=== PATIENT | female | born 1960 | race American Indian/Alaskan Native ===

== ENCOUNTER 2018-06-18 15:45 | Emergency (ER) | payer MEDICAID ==
--- NOTE | 2018-06-18 18:12 | Emergency Department Report ---
Blank Doc - Documentation Documentation: 57 y o male presents to ED cc of migraine headache x 2 weeks alsostates she needs her medications refilled. ran out 1 week ago hx of migraines no neuro sxs [facility] evaluate
[2018-06-18 18:14] VITALS: BP 141/84
[2018-06-18] MEDS ORDERED: BENADRYL PO ONE (20:13)
[2018-06-18] MEDS ORDERED: IBUPROFEN PO ONE (20:13)
[2018-06-18] MEDS ORDERED: REGLAN PO ONE (20:13)
--- NOTE | 2018-06-18 20:14 | Emergency Department Report ---
ED Headache HPI - General Chief Complaint: Headache Stated Complaint: HEADACHE Time Seen by Provider: 06/18/18 18:10 - History of Present Illness Timing/Duration: 24 hours Quality: moderate Head Injury Location: temporal Recent Head Trauma: chronic headaches Allergies/Adverse Reactions: Allergies No Known Allergies Allergy (Unverified 06/18/18 15:52) Home Medications: Ambulatory Orders Cephalexin [Keflex] 500 mg PO BID #20 capsule 06/18/18 Darunavir/Cobicistat [Prezcobix 800 mg-150 mg Tablet] 1 each PO QDAY #30 tablet 06/18/18 Emtricitabine/Tenofov Alafenam [Descovy 200-25 mg Tablet] 1 each PO QDAY #30 tablet 06/18/18 Folic Acid [Folvite] 1 mg PO QDAY #30 tablet 06/18/18 Ibuprofen [Motrin 600 MG tab] 600 mg PO Q8H #15 tablet 06/18/18 traZODone [Desyrel] 50 mg PO QHS #30 tab 06/18/18 ED Review of Systems ROS: Stated complaint: HEADACHE Other details as noted in HPI Comment: All other systems reviewed and negative Constitutional: denies: chills, fever Eyes: denies: eye pain, eye discharge, vision change ENT: denies: ear pain, throat pain Respiratory: no symptoms reported Cardiovascular: denies: chest pain, palpitations Endocrine: no symptoms reported Gastrointestinal: denies: abdominal pain, nausea, diarrhea Genitourinary: denies: urgency, dysuria, discharge Musculoskeletal: denies: back pain, joint swelling, arthralgia Skin: denies: rash, lesions Neurological: headache ED Past Medical Hx - Past Medical History Previous Medical History?: Yes Hx Hypertension: Yes Hx HIV: Yes - Surgical History Past Surgical History?: No - Social History Smoking Status: Never Smoker Substance Use Type: None - Medications Home Medications: Home Medications Medication Instructions Recorded Confirmed Last Taken Type Cephalexin [Keflex] 500 mg PO BID #20 capsule 06/18/18 Unknown Rx Darunavir/Cobicistat [Prezcobix 1 each PO QDAY #30 tablet 06/18/18 Unknown Rx 800 mg-150 mg Tablet] Emtricitabine/Tenofov Alafenam 1 each PO QDAY #30 tablet 06/18/18 Unknown Rx [Descovy 200-25 mg Tablet] Folic Acid [Folvite] 1 mg PO QDAY #30 tablet 06/18/18 Unknown Rx Ibuprofen [Motrin 600 MG tab] 600 mg PO Q8H #15 tablet 06/18/18 Unknown Rx traZODone [Desyrel] 50 mg PO QHS #30 tab 06/18/18 Unknown Rx ED Physical Exam - General Limitations: No Limitations General appearance: alert, in no apparent distress - Head Head exam: Present: atraumatic, normocephalic - Eye Eye exam: Present: normal appearance, PERRL, EOMI - ENT ENT exam: Present: mucous membranes moist - Neurological Exam Neurological exam: Present: alert, oriented X3 - Psychiatric Psychiatric exam: Present: normal affect, normal mood - Skin Skin exam: Present: warm, dry, intact, normal color. Absent: rash ED Course Vital Signs 06/18/18 06/18/18 18:12 20:58 Temperature 98.5 F Pulse Rate 67 70 Respiratory 16 16 Rate Blood Pressure 141/84 O2 Sat by Pulse 99 99 Oximetry Critical care attestation.: If time is entered above; I have spent that time in minutes in the direct care of this critically ill patient, excluding procedure time. ED Disposition Clinical Impression: Sinusitis, acute, HIV disease Disposition: DC-01 TO HOME OR SELFCARE Is pt being admited?: No Does the pt Need Aspirin: No Condition: Stable Instructions: Sinusitis (ED), Human Immunodeficiency Virus Infection (ED) Additional Instructions: Please take medications as prescribed. Follow-up to primary care provider if symptoms persist or gets worse. Increase your water intake and fluid intake. All of what which are infectious disease provider. Prescriptions: traZODone [Desyrel] 50 mg PO QHS #30 tab Emtricitabine/Tenofov Alafenam [Descovy 200-25 mg Tablet] 1 each PO QDAY #30 tablet Folic Acid [Folvite] 1 mg PO QDAY #30 tablet Cephalexin [Keflex] 500 mg PO BID #20 capsule Ibuprofen [Motrin 600 MG tab] 600 mg PO Q8H #15 tablet Darunavir/Cobicistat [Prezcobix 800 mg-150 mg Tablet] 1 each PO QDAY #30 tablet Referrals: [facility] MD ADRIANNE [Primary Care Provider] - 3-5 Days JASBIR HUANG MD [Staff Physician] - 3-5 Days
== END 2018-06-18 20:59 | disposition home or self-care (01) ==
LOC: ED 15:45
DX: J01.90 Acute sinusitis, unspecified (principal); I10 Essential (primary) hypertension
CPT/HCPCS: 99282

== ENCOUNTER 2018-10-22 21:42 | Emergency (ER) | payer MEDICAID ==
--- NOTE | 2018-10-22 21:51 | Emergency Department Report ---
Blank Doc - Documentation Documentation: This is a 57-year-old female that presents with detox from percocet. This initial assessment/diagnostic orders/clinical plan/treatment(s) is/are subject to change based on patient's health status, clinical progression and re- assessment by fellow clinical providers in the ED. Further treatment and workup at subsequent clinical providers discretion. Patient/guardians urged not to elope from the ED as their condition may be serious if not clinically assessed and managed. Initial orders include: 1- Patient sent to MAIN ED for further evaluation and treatment 2- labs 3- UA
[2018-10-22 22:48] LABS: Bilirubin,Urine Negative (Negative); Blood,Urine Negative (Negative); Color,Urine Yellow (Yellow); Urobilinogen,Urine < 2.0 mg/dL (<2.0)
[2018-10-22 22:49] LABS: RBC,Urine < 1.0 /HPF (0.0-6.0)
[2018-10-22 23:04] LABS: Basophils % (Auto) 0.8 % (0.0-1.8); Eosinophils # (Auto) 0.1 K/mm3 (0.0-0.4); Eosinophils % (Auto) 0.9 % (0.0-4.3); Hematocrit 45.3 % (30.3-42.9); Hemoglobin 15.3 gm/dl (10.1-14.3); Lymphocytes # (Auto) 2.9 K/mm3 (1.2-5.4); Lymphocytes % (Auto) 46.9 % (13.4-35.0); Mean Corpuscular HGB Conc 34 % (30-34); Mean Corpuscular Volume 93 fl (79-97); Monocytes # (Auto) 0.4 K/mm3 (0.0-0.8); Monocytes % (Auto) 7.1 % (0.0-7.3); Platelet Count 191 K/mm3 (140-440); Red Blood Count 4.85 M/mm3 (3.65-5.03); Red Cell Distribution Width 13.5 % (13.2-15.2)
[2018-10-22 23:11] LABS: BUN/Creatinine Ratio 23; Blood Urea Nitrogen 21 mg/dL (7-17); Calcium 9.4 mg/dL (8.4-10.2); Hemolysis Index 195
[2018-10-22 23:26] LABS: Benzodiazepines Screen,Urine PRESUMPTIVE NEGATIVE; Cocaine Screen,Urine PRESUMPTIVE NEGATIVE; Methadone Screen,Urine PRESUMPTIVE NEGATIVE; Opiate Screen,Urine PRESUMPTIVE NEGATIVE
[2018-10-22 23:42] LABS: Amphetamine Screen,Urine PRESUMPTIVE POSITIVE; Cannabinoid Screen,Urine PRESUMPTIVE POSITIVE
[2018-10-23] MEDS ORDERED: NACL 0.9% 1000 ML 1,000 ML IV ONE (00:50)
[2018-10-23] MEDS ORDERED: KIONEX PO ONE (00:51)
[2018-10-23] MEDS ORDERED: TYLENOL PO ONE (01:20)
--- NOTE | 2018-10-23 01:41 | Emergency Department Report ---
ED Medical Clearance HPI - General Chief complaint: Medical Clearance Stated complaint: DETOX Time Seen by Provider: 10/22/18 21:49 Source: patient, family Mode of arrival: Ambulatory - History of Present Illness Initial comments: 57 y.o aaf who uses alcohol and opiates daily, now requesting detox for both. Last drink alcohol yesterday, last took percocet 10mg yesterday. no n/v. no fever, chills or night sweats. Home medications: Home Medications Medication Instructions Recorded Confirmed Last Taken FLUoxetine HCL [FLUoxetine] 20 mg PO DAILY 10/23/18 10/23/18 10/22/18 Previous Rx's Medication Instructions Recorded Last Taken Type Cephalexin [Keflex] 500 mg PO BID #20 capsule 06/18/18 Unknown Rx Darunavir/Cobicistat [Prezcobix 1 each PO QDAY #30 tablet 06/18/18 10/22/18 Rx 800 mg-150 mg Tablet] Emtricitabine/Tenofov Alafenam 1 each PO QDAY #30 tablet 06/18/18 10/22/18 Rx [Descovy 200-25 mg Tablet] Folic Acid [Folvite] 1 mg PO QDAY #30 tablet 06/18/18 Unknown Rx Ibuprofen [Motrin 600 MG tab] 600 mg PO Q8H #15 tablet 06/18/18 Unknown Rx traZODone [Desyrel] 50 mg PO QHS #30 tab 06/18/18 Unknown Rx Allergies/Adverse reactions: Allergies Allergy/AdvReac Type Severity Reaction Status Date / Time No Known Allergies Allergy Unverified 06/18/18 15:52 ED Review of Systems ROS: Stated complaint: DETOX Other details as noted in HPI Comment: All other systems reviewed and negative ENT: denies: ear pain, throat pain Respiratory: denies: no symptoms reported, cough Cardiovascular: chest pain Gastrointestinal: denies: abdominal pain Neurological: denies: headache Psychiatric: anxiety. denies: depression, auditory hallucinations, visual hallucinations, homicidal thoughts, suicidal thoughts ED Past Medical Hx - Past Medical History Previous Medical History?: Yes Hx Hypertension: Yes Hx HIV: Yes Additional medical history: Opioid Addiction - Surgical History Past Surgical History?: No - Social History Smoking Status: Current Every Day Smoker Substance Use Type: Marijuana - Medications Home Medications: Home Medications Medication Instructions Recorded Confirmed Last Taken Type Cephalexin [Keflex] 500 mg PO BID #20 capsule 06/18/18 Unknown Rx Darunavir/Cobicistat [Prezcobix 1 each PO QDAY #30 tablet 06/18/18 10/23/18 10/22/18 Rx 800 mg-150 mg Tablet] Emtricitabine/Tenofov Alafenam 1 each PO QDAY #30 tablet 06/18/18 10/23/18 10/22/18 Rx [Descovy 200-25 mg Tablet] Folic Acid [Folvite] 1 mg PO QDAY #30 tablet 06/18/18 Unknown Rx Ibuprofen [Motrin 600 MG tab] 600 mg PO Q8H #15 tablet 06/18/18 Unknown Rx traZODone [Desyrel] 50 mg PO QHS #30 tab 06/18/18 Unknown Rx FLUoxetine HCL [FLUoxetine] 20 mg PO DAILY 10/23/18 10/23/18 10/22/18 History ED Physical Exam - General Limitations: No Limitations General appearance: alert, in no apparent distress - Head Head exam: Present: atraumatic, normocephalic - Eye Eye exam: Present: normal appearance, PERRL, EOMI Pupils: Present: normal accommodation - ENT ENT exam: Present: normal exam - Neck Neck exam: Present: normal inspection - Respiratory Respiratory exam: Present: normal lung sounds bilaterally - Cardiovascular Cardiovascular Exam: Present: regular rate, normal rhythm - GI/Abdominal GI/Abdominal exam: Present: soft, normal bowel sounds - Neurological Exam Neurological exam: Present: alert, oriented X3, CN II-XII intact - Skin Skin exam: Present: warm ED Course Vital Signs 10/22/18 10/23/18 10/23/18 21:50 00:29 00:30 Temperature 98.4 F Pulse Rate 82 76 70 Respiratory 16 22 20 Rate Blood Pressure 113/77 126/84 113/80 Blood Pressure [Left] O2 Sat by Pulse 98 99 Oximetry 10/23/18 10/23/18 10/23/18 00:45 01:00 01:15 Temperature Pulse Rate 69 67 66 Respiratory 21 21 16 Rate Blood Pressure 113/80 117/78 117/78 Blood Pressure [Left] O2 Sat by Pulse 99 100 98 Oximetry 10/23/18 10/23/18 10/23/18 01:30 01:45 02:01 Temperature Pulse Rate 66 61 61 Respiratory 15 21 20 Rate Blood Pressure 132/84 132/84 132/84 Blood Pressure [Left] O2 Sat by Pulse 97 100 100 Oximetry 10/23/18 10/23/18 10/23/18 02:15 02:31 02:45 Temperature Pulse Rate 70 75 76 Respiratory 19 23 14 Rate Blood Pressure 132/84 132/84 132/84 Blood Pressure [Left] O2 Sat by Pulse 100 98 100 Oximetry 10/23/18 10/23/18 10/23/18 03:01 03:15 03:31 Temperature Pulse Rate Respiratory 26 H 29 H 18 Rate Blood Pressure 132/84 132/84 132/84 Blood Pressure [Left] O2 Sat by Pulse 99 98 97 Oximetry 10/23/18 10/23/18 10/23/18 03:45 04:01 04:15 Temperature Pulse Rate Respiratory 23 24 23 Rate Blood Pressure 132/84 132/84 132/84 Blood Pressure [Left] O2 Sat by Pulse 98 99 98 Oximetry 10/23/18 10/23/18 10/23/18 04:31 04:45 05:01 Temperature Pulse Rate Respiratory 25 H 19 23 Rate Blood Pressure 132/84 132/84 132/84 Blood Pressure [Left] O2 Sat by Pulse 99 98 99 Oximetry 10/23/18 10/23/18 10/23/18 05:15 05:31 05:45 Temperature Pulse Rate Respiratory 22 27 H 14 Rate Blood Pressure 132/84 132/84 132/84 Blood Pressure [Left] O2 Sat by Pulse 98 98 98 Oximetry 10/23/18 10/23/18 10/23/18 06:01 06:16 06:34 Temperature Pulse Rate Respiratory 24 Rate Blood Pressure 132/84 118/89 118/89 Blood Pressure [Left] O2 Sat by Pulse 95 89 81 L Oximetry 10/23/18 10/23/18 10/23/18 06:38 07:46 11:40 Temperature 98.1 F 98.1 F Pulse Rate 84 76 Respiratory 16 Rate Blood Pressure Blood Pressure 124/85 115/84 [Left] O2 Sat by Pulse 95 98 99 Oximetry 10/23/18 10/24/18 10/24/18 19:20 02:33 08:40 Temperature 98.3 F 97.8 F 98.0 F Pulse Rate 68 61 70 Respiratory 18 18 16 Rate Blood Pressure Blood Pressure 146/100 130/85 141/93 [Left] O2 Sat by Pulse 98 100 99 Oximetry 10/24/18 14:04 Temperature Pulse Rate 63 Respiratory 16 Rate Blood Pressure Blood Pressure 157/87 [Left] O2 Sat by Pulse 100 Oximetry ED Medical Decision Making - Lab Data Result diagrams: 10/22/18 22:26 10/23/18 11:49 - Medical Decision Making medically clear for placement. ED Disposition Clinical Impression: Alcohol abuse, Opiate abuse, continuous Disposition: DC/TX-70 ANOTHER TYPE HLTHCARE Is pt being admited?: No Does the pt Need Aspirin: No Condition: Stable Referrals: MINDY LIRA MD [Primary Care Provider] - 3-5 Days Forms: Accompanied Note
[2018-10-23] MEDS: ATIVAN PO PRN ×2 (02:45→09:29)
[2018-10-23] MEDS ORDERED: ZOFRAN IV PRN (10:02)
[2018-10-23] MEDS: TYLENOL PO PRN ×2 (11:30→21:46)
--- NOTE | 2018-10-23 14:09 | Consultation ---
History of Present Illness - Reason for Consult Consult date: 10/23/18 Reason for consult: Mental Health Evaluation Requesting physician: MIRI PEDROZA - Chief Complaint Chief complaint: "I want to stop with the pills" - History of Present Psychiatric Illness 57 y.o. AA female who presented to the ER for detox for opioids and alcohol (etoh). Today the patient was calm during the assessment. She stated that she is feeling hopeless and helpless because of her opioid and alcohol addiction. She stated that she started taking Percocet pills 6 months ago to relieve her migraine headaches. She stated that she buy the pills on the street. She stated that her alcohol consumption (etoh) has increased over the past few months. She stated that she have drink everyday recently. She rate her depression 6/10, with 10 being the worse. She denies SI/HI's and AVH's. She acknowledged poor sleep and a poor appetite. She stated that she had a Percocet pill and drink [id number] (etoh) 2 days ago. The patient's UDS is negative and her alcohol serum is WNL. Medications and Allergies Allergies Allergy/AdvReac Type Severity Reaction Status Date / Time No Known Allergies Allergy Unverified 06/18/18 15:52 Home Medications Medication Instructions Recorded Confirmed Last Taken Type Cephalexin [Keflex] 500 mg PO BID #20 capsule 06/18/18 Unknown Rx Darunavir/Cobicistat [Prezcobix 1 each PO QDAY #30 tablet 06/18/18 10/23/18 10/22/18 Rx 800 mg-150 mg Tablet] Emtricitabine/Tenofov Alafenam 1 each PO QDAY #30 tablet 06/18/18 10/23/18 10/22/18 Rx [Descovy 200-25 mg Tablet] Folic Acid [Folvite] 1 mg PO QDAY #30 tablet 06/18/18 Unknown Rx Ibuprofen [Motrin 600 MG tab] 600 mg PO Q8H #15 tablet 06/18/18 Unknown Rx traZODone [Desyrel] 50 mg PO QHS #30 tab 06/18/18 Unknown Rx FLUoxetine HCL [FLUoxetine] 20 mg PO DAILY 10/23/18 10/23/18 10/22/18 History Active Meds: Active Medications Acetaminophen (Tylenol) 650 mg PO Q6H PRN PRN Reason: Headache Last Admin: 10/23/18 11:30 Dose: 650 mg Documented by: Lorazepam (Ativan) 2 mg PO Q1H PRN PRN Reason: CIWA-Ar 8-15 Last Admin: 10/23/18 09:29 Dose: 2 mg Documented by: Ondansetron HCl (Zofran) 4 mg IV Q8H PRN PRN Reason: Nausea Last Admin: 10/23/18 09:29 Dose: 4 mg Documented by: Past psychiatric history - Past Medical History Past Medical History: HIV/AIDS, other (Migraine Headaches) Past Surgical History: No surgical history - past Psychiatric treatment and history psychiatric treatment history: Hx of Opioid Use DO. Denies a fam psy hx. - Social History Social history: lives with family Mental Status Exam - Vital signs Last Vital Signs Temp 98.1 F 10/23/18 11:40 Pulse 76 10/23/18 07:46 Resp 16 10/23/18 07:46 BP 115/84 10/23/18 11:40 Pulse Ox 99 10/23/18 11:40 - Exam Narrative exam: MSE: Appearance: calm Behavior: regular eye contact Speech: regular rate and tone Mood: "depressed" Affect: congruent to mood Thought Process: circumstantial Thought Content: denies SI/HI's and AVH's Motor Activity: ambulatory Cognition: A/O x3 Insight: fair Judgment: fair Results Result Diagrams: 10/22/18 22:26 10/23/18 11:49 Abnormal lab results 10/22/18 10/22/18 10/23/18 Range/Units 22:26 22:26 01:51 Hgb 15.3 H (10.1-14.3) gm/dl Hct 45.3 H (30.3-42.9) % Lymph % (Auto) 46.9 H (13.4-35.0) % Sodium 136 L (137-145) mmol/L Potassium 5.9 H 5.1 H (3.6-5.0) mmol/L BUN 21 H (7-17) mg/dL All other labs normal. Assessment and Plan Assessment and plan: Impression: MDD. Hx of Opioid/Alcohol Use DO per the patient. Substance Use DO (amphetamines/barbiturates). 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 Today the patient was calm during the assessment, DDx: Substance Induced Mood DO Recommendation/Plan: Start Remeron 15 mg PO HS for depression. Discussed possible metabolic suicidality/medication induced miguelangel with the patient reference Remeron, she verbalized understanding. Monitor the patient for withdrawal like symptoms. Dispo: The patient was referred to [facility] for inpatient rehab services (voluntary). Staffed with Dr Kilo Brewer.
[2018-10-23] MEDS: REMERON PO SCH (21:46)
[2018-10-24] MEDS: ATIVAN PO PRN (10:51)
[2018-10-24] MEDS: TYLENOL PO PRN (20:49)
[2018-10-24] MEDS: REMERON PO SCH (21:42)
--- NOTE | 2018-10-25 08:25 | Progress Note ---
Subjective - Reason for Consult Consult date: 10/25/18 Reason for consult: Psychiatry Follow-up - Chief Complaint Chief complaint: "I feel much better" 57 y.o. AA female who presented to the ER for detox for opiates and alcohol (etoh). Today the patient was calm and cooperative during the assessment. She stated that she feel much better. She stated that she got rest the past 2 nights. She was explained the referral process for inpatient psy/rehab faci lities, she verbalized understanding. She denies SI/HI's and AVHs. She denies any side effects of her medication. Mental Status Exam - Vital signs Last Vital Signs Temp 98.2 F 10/25/18 04:00 Pulse 72 10/25/18 04:00 Resp 16 10/25/18 04:00 BP 132/65 10/25/18 04:00 Pulse Ox 98 10/25/18 04:00 - Exam Narrative exam: MSE: Appearance: calm, cooperative Behavior: regular eye contact Speech: regular rate and tone Mood: "better" Affect: congruent to mood Thought Process: logical Thought Content: denies SI/HI's and AVH's Motor Activity: ambulatory Cognition: A/O x3 Insight: appropriate Judgment: appropriate Assessment and Plan Impression: MDD. Hx of Opioid/Alcohol Use DO per the patient. Substance Use DO (amphetamines/barbiturates). 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 Today the patient was calm and cooperative during the assessment, DDx: Substance Induced Mood DO Recommendation/Plan: Continue Remeron 15 mg PO HS for depression. Discussed possible metabolic suicidality/medication induced miguelangel with the patient reference Remeron, she verbalized understanding. Monitor the patient for withdrawal like symptoms. Discussed the importance to abstain from opiates/ excessive alcohol consumption (etoh), she verbalized understanding. Psy sign off. Dispo: The patient was given a referral to local outpatient psy/rehab services. Will staff with DR Kilo Brewer.
[2018-10-25] MEDS: TYLENOL PO PRN (08:34)
[2018-10-25 09:44] VITALS: BP 133/89
== END 2018-10-25 09:58 | disposition home or self-care (01) ==
LOC: ED 10-23 00:26
DX: F41.9 Anxiety disorder, unspecified (principal); F11.23 Opioid dependence with withdrawal; F10.239 Alcohol dependence with withdrawal, unspecified; I10 Essential (primary) hypertension; F17.200 Nicotine dependence, unspecified, uncomplicated; F12.10 Cannabis abuse, uncomplicated
CPT/HCPCS: 36415; 80048; 80307; 81001; 84132; 85025; 93005; 93010; 96374; 99284; J2405; J7030; 80320; 96361; 99285; G0480

== ENCOUNTER 2019-02-05 17:40 | Emergency (ER) | payer MEDICAID ==
[2019-02-05 17:55] VITALS: BP 102/77
--- NOTE | 2019-02-05 17:56 | Event Note ---
ED Screening Note Date of service: 02/05/19 ED Screening Note: This initial assessment/diagnostic orders/clinical plan/treatment(s) is/are subject to change based on patients health status, clinical progression and re- assessment by fellow clinical providers in the ED. Further treatment and workup at subsequent clinical providers discretion. Patient/guardian urged not to elope from the ED as their condition may be serious if not clinically assessed and managed. Initial orders include: 58yo BF states that she slipped and fell at home. She states that her lower back and head hurts. She further states that she hit her head at the base. She denies losing consciousness.
--- NOTE | 2019-02-05 18:41 | XRay Report ---
XR spine lumbosacral 2-3V INDICATION / CLINICAL INFORMATION: Low back pain after fall. COMPARISON: None available. FINDINGS: BONES/JOINT(S): No acute fracture or subluxation. There is mild degenerative disc disease at L4-5 and L5-S1 with mild disc height loss and endplate osteophyte formation. There is slight left convex scol iosis with the apex at the L2-L3 level. SOFT TISSUES: No significant abnormality. ADDITIONAL FINDINGS: None. Signer Name: Jarrod Patrick MD Signed: 02/05/2019 6:37 PM Workstation Name: [id number]
--- NOTE | 2019-02-05 19:55 | Emergency Department Report ---
ED Fall HPI - General Chief Complaint: Fall Stated Complaint: FALL Time Seen by Provider: 02/05/19 19:53 Source: patient, family Mode of arrival: Ambulatory - History of Present Illness Initial Comments: This is a 58-year-old female who reports that she slipped and fell on wet floor in her kitchen today and she is having lower back pain and neck pain and reported that she also hit the back of her head and she is having headache at the back of her head. Pain to her lower back and had is 8 out of 10 and achy. Patient to neck 6 out of 10. She denies any dizziness him any vomiting any loss of consciousness. Denies any fever or chills or neck pain or stiffness. Denies any pain in her extremities. Patient seemed to be walking around. She said this happened earlier today. She also reported that she has a lump at the back of her head. She denies taking any medication prior to coming to the emergency room. Patient has a history of HIV and on medication and she says she follows up with infectious disease and history of opioid addiction. MD Complaint: fall -: This afternoon Fall From: standing When Fall Occurred: 4-6 hours [employer] Fall Witnessed: yes, by family Place Fall Occurred: home Loss of Consciousness: none Prolonged Down Time?: no Symptoms Prior to Fall: none Location: head, neck, back Severity: severe Severity scale (0 -10): 8 Quality: aching Context: tripped/slipped (on wet floor) Associated Symptoms: headache, neck pain. denies: numbness, weakness, chest paint, shortness of breath, abdominal pain, hematuria, unable to walk, lightheaded, vertigo, confusion - Related Data Home Medications Medication Instructions Recorded Confirmed Last Taken FLUoxetine HCL [FLUoxetine] 20 mg PO DAILY 10/23/18 10/23/18 10/22/18 Previous Rx's Medication Instructions Recorded Last Taken Type Cephalexin [Keflex] 500 mg PO BID #20 capsule 06/18/18 Unknown Rx Darunavir/Cobicistat [Prezcobix 1 each PO QDAY #30 tablet 06/18/18 10/22/18 Rx 800 mg-150 mg Tablet] Emtricitabine/Tenofov Alafenam 1 each PO QDAY #30 tablet 06/18/18 10/22/18 Rx [Descovy 200-25 mg Tablet] Folic Acid [Folvite] 1 mg PO QDAY #30 tablet 06/18/18 Unknown Rx traZODone [Desyrel] 50 mg PO QHS #30 tab 06/18/18 Unknown Rx Ibuprofen [Motrin 600 MG tab] 600 mg PO Q8H PRN #12 tablet 02/05/19 Unknown Rx Allergies Allergy/AdvReac Type Severity Reaction Status Date / Time No Known Allergies Allergy Unverified 06/18/18 15:52 ED Review of Systems ROS: Stated complaint: FALL Other details as noted in HPI Constitutional: denies: chills, fever Eyes: denies: vision change Respiratory: denies: cough, shortness of breath, SOB with exertion, SOB at rest, wheezing Cardiovascular: denies: chest pain, palpitations, dyspnea on exertion, edema, syncope Gastrointestinal: denies: abdominal pain, nausea, vomiting Genitourinary: denies: dysuria, hematuria Skin: denies: rash Neurological: headache. denies: weakness, numbness, paresthesias, confusion, abnormal gait, vertigo ED Past Medical Hx - Past Medical History Previous Medical History?: Yes Hx Hypertension: Yes Hx HIV: Yes Additional medical history: Opioid Addiction - Surgical History Past Surgical History?: No - Family History Family history: hypertension - Social History Smoking Status: Current Every Day Smoker Substance Use Type: None - Medications Home Medications: Home Medications Medication Instructions Recorded Confirmed Last Taken Type Cephalexin [Keflex] 500 mg PO BID #20 capsule 06/18/18 Unknown Rx Darunavir/Cobicistat [Prezcobix 1 each PO QDAY #30 tablet 06/18/18 10/23/18 10/22/18 Rx 800 mg-150 mg Tablet] Emtricitabine/Tenofov Alafenam 1 each PO QDAY #30 tablet 06/18/18 10/23/18 10/22/18 Rx [Descovy 200-25 mg Tablet] Folic Acid [Folvite] 1 mg PO QDAY #30 tablet 06/18/18 Unknown Rx traZODone [Desyrel] 50 mg PO QHS #30 tab 06/18/18 Unknown Rx FLUoxetine HCL [FLUoxetine] 20 mg PO DAILY 10/23/18 10/23/18 10/22/18 History Ibuprofen [Motrin 600 MG tab] 600 mg PO Q8H PRN #12 tablet 11/29/19 Unknown Rx ED Physical Exam - General Limitations: No Limitations General appearance: alert, in no apparent distress - Head Head exam: Present: atraumatic, normocephalic - Expanded Head Exam Expanded Head exam: Absent: laceration, abrasion, contusion, hematoma, racoon eyes, herndon's sign, general tenderness, tenderness of temporal artery, CSF rhinorrhea, CSF otorrhea - Eye Eye exam: Present: normal appearance, PERRL, EOMI. Absent: nystagmus, periorbital swelling, periorbital tenderness Pupils: Present: normal accommodation - ENT ENT exam: Present: normal exam, normal orophraynx, mucous membranes moist, TM's normal bilaterally, normal external ear exam - Neck Neck exam: Present: normal inspection, full ROM (full range of motion but she reports pain to the side of her neck with movement), other (no C-spine tenderness). Absent: tenderness, meningismus, lymphadenopathy - Respiratory Respiratory exam: Present: normal lung sounds bilaterally. Absent: respiratory distress, chest wall tenderness - Cardiovascular Cardiovascular Exam: Present: regular rate, normal rhythm, normal heart sounds - GI/Abdominal GI/Abdominal exam: Present: soft, normal bowel sounds. Absent: distended, tenderness - Extremities Exam Extremities exam: Present: normal inspection, full ROM, normal capillary refill, other (No cce. + 2 pulses in all extremities, no neurovascular compromise). Absent: tenderness, pedal edema, joint swelling, calf tenderness - Back Exam Back exam: Present: normal inspection, full ROM, tenderness, vertebral tenderness (tender to palpate to lumbar area), other (ambulates without any difficulties). Absent: CVA tenderness (R), CVA tenderness (L), muscle spasm, paraspinal tenderness, rash noted - Expanded Back Exam Expanded Back exam: Absent: saddle anesthesia Back exam: Negative Straight Leg Raising: Left, Right - Neurological Exam Neurological exam: Present: alert, oriented X3, normal gait, reflexes normal. Absent: motor sensory deficit - Expanded Neurological Exam Expanded Neurological exam: Absent: innattentive, memory loss-remote event, memory loss- recent event, ataxia, receptive aphasia, expressive aphasia, total aphasia, tremor, protecting the airway Patient oriented to: Present: person, place, time Speech: Present: fluid speech Cranial nerves: EOM's Intact: Normal, Gag Reflex: Normal, Nystagmus: Normal, F acial Sensation: Normal Cerebellar function: Romberg: Normal Upper motor neuron: Pronator Drift: Normal Sensory exam: Upper Extremity Light Touch: Normal, Upper Extremity Temperature: Normal, Lower Extremity Light Touch: Normal, Lower Extremity Temperature: Normal Motor strength exam: RUE: 5, LUE: 5, RLE: 5, LLE: 5 DTR: knee (R): 2+, knee (L): 2+, ankle (R): 2+, ankle (L): 2+ Best Eye Response (Rj): (4) open spontaneously Best Motor Response (Rj): (6) obeys commands Best Verbal Response ([place]): (5) oriented Rj Total: 15 - Psychiatric Psychiatric exam: Present: normal affect, normal mood - Skin Skin exam: Present: warm, dry, intact, normal color. Absent: rash ED Course Vital Signs 02/05/19 02/05/19 17:52 20:23 Temperature 98.5 F Pulse Rate 78 Respiratory 20 18 Rate Blood Pressure 102/77 O2 Sat by Pulse 100 Oximetry - Reevaluation(s) Reevaluation #1: 02/05/19 22:28 She received Tylenol with Codeine 2 tablets and Flexeril 10 mg by mouth and pain is better down to 2 out of 10. I discussed with her that I cannot give her any pain medication to go home with depressed second duties to give her motrin for pain and she voiced understanding. 02/05/19 22:36 ED Medical Decision Making - Radiology Data Radiology results: report reviewed Patient had x-ray lumbar spine which shows no acute findings, CT scan of the head and the neck without contrast and all were dictated by radiologist and report reviewed by myself. Please see details below Findings [address] [address] XRay Report Signed Patient: BRENDA MILLS MR#: [id number] : 1960 Acct:[id number] Age/Sex: 58 / F ADM Date: 02/05/19 Loc: ED Attending Dr: Ordering Physician: JAXON ELIZABETH PA-C Date of Service: 02/05/19 Procedure(s): XR spine lumbosacral 2-3V Accession Number(s): [id number] cc: JAXON ELIZABETH PA-C Fluoro Time In Minutes: XR spine lumbosacral 2-3V INDICATION / CLINICAL INFORMATION: Low back pain after fall. COMPARISON: None available. FINDINGS: BONES/JOINT(S): No acute fracture or subluxation. There is mild degenerative disc disease at L4-5 and L5-S1 with mild disc height loss and endplate osteophyte formation. There is slight left convex scoliosis with the apex at the L2-L3 level. SOFT TISSUES: No significant abnormality. ADDITIONAL FINDINGS: None. Signer Name: Jarrod Patrick MD Signed: 02/05/2019 6:37 PM Workstation Name: [id number] Transcribed By: TIESHA Dictated By: Jarrod Patrick MD Electronically Authenticated By: Jarrod Patrick MD Signed Date/Time: 02/05/191836 DD/ 35 TD/TT: Findings [facility] [address] [place] [address] Cat Scan Report Signed Patient: BRENDA MILLS MR#: [id number] : 1960 Acct:[id number] Age/Sex: 58 / F ADM Date: 02/05/19 Loc: ED Attending Dr: Ordering Physician: SHELBI TYSON Date of Service: 02/05/19 Procedure(s): CT head/brain wo con Accession Number(s): [id number] cc: SHELBI TYSON CT head/brain wo con INDICATION: Fall, head injury. TECHNIQUE: Routine CT head without contrast. All CT scans at this location are performed using CT dose reduction for ALARA by means of automated exposure control. COMPARISON: None. FINDINGS: BRAIN / INTRACRANIAL CONTENTS: There is no acute hemorrhage, brain edema, hydrocephalus, or adverse mass effect. There is an extra-axial CSF attenuation fluid collection over the left frontal convexity most likely representing an arachnoid cyst. CALVARIUM/SKULL BASE/CRANIOCERVICAL JUNCTION: No evidence of fracture. ORBITS: No significant abnormality of visualized orbits. SINUSES / MASTOIDS: No significant abnormality of visualized sinuses and mastoid air cells. ADDITIONAL FINDINGS: None. IMPRESSION: 1. No acute intracranial abnormality. 2. Extra-axial cystic lesion of the left frontal convexity probably represents a small arachnoid cyst. Signer Name: Jarrod Patrick MD Signed: 02/05/2019 9:20 PM Workstation Name: [id number] Transcribed By: TIESHA Dictated By: Jarrod Patrick MD Electronically Authenticated By: Jarrod Patrick MD Signed Date/Time: 02/05/192119 DD/ 16 TD/TT: Findings [facility] [address] [place] [address] Cat Scan Report Signed Patient: BRENDA MILLS MR#: [id number] : 1960 Acct:[id number] Age/Sex: 58 / F ADM Date: 02/05/19 Loc: ED Attending Dr: Ordering Physician: SHELBI TYSON Date of Service: 02/05/19 Procedure(s): CT cervical spine wo con Accession Number(s): [id number] cc: SHELBI TYSON CT CERVICAL SPINE WITHOUT CONTRAST INDICATION: neck pain after falling dizziness. TECHNIQUE: Axial CT images of the spine were obtained. Sagittal and coronal reformatted images were produced. All CT scans at this location are performed using CT dose reduction for ALARA by means of automated exposure control. COMPARISON: None available. FINDINGS: ACUTE FRACTURE(S) OR SUBLUXATION: None. SPINAL DEGENERATIVE CHANGES: Mild degenerative disc disease from C4 through C7 with mild disc height loss and endplate osteophyte permission. No significant spinal canal stenosis. PARASPINAL SOFT TISSUES: No soft tissue swelling or other acute abnormalities. ADDITIONAL FINDINGS: There is an incidental subcutaneous lipoma in the left upper back that is incompletely visualized. IMPRESSION: 1. No acute fracture or subluxation in the spine in neutral position. 2. Mild degenerative disc disease from C4 through C7. 3. Incompletely visualized incidental subcutaneous lipoma in the left upper back. Signer Name: Jarrod Patrick MD Signed: 02/05/2019 9:23 PM Workstation Name: [id number] Transcribed By: TIESHA Dictated By: Jarrod Patrick MD Electronically Authenticated By: Jarrod Patrick MD Signed Date/Time: 02/05/192122 - Medical Decision Making This is a 58-year-old patient with history of HIV and chronic pain. She is here because she reports that she slipped and fell in her kitchen today. She is complaining of headache, neck pain and lower back pain. Patient and records report that she is chronic narcotic seeker. She had x-ray of lumbar spine which shows degenerative disc disease, degenerative disc disease in her C-spine and incidental finding on for lipoma to upper back and also CT of the head shows no acute findings except for frontal lobe cyst which is not acute. I discussed this with patient and and I referred her to neurology and also back to her primary care physician to follow up in 2-3 days and she voiced understanding. Patient was given Tylenol 3 2 tablets and Flexeril 10 mg emergency room which relieved her pain. Vital signs are stable she is afebrile. Patient has been pacing back and forth in emergency room axis and for something to eat which she did received. She stable and in no acute distress and given prescription for motrin - Differential Diagnosis FX VS SUbluxation, DDD, ICH VS ECH,MSK PAIN Critical care attestation.: If time is entered above; I have spent that time in minutes in the direct care of this critically ill patient, excluding procedure time. ED Disposition Clinical Impression: Musculoskeletal pain, Cyst of brain Fall, accidental Qualifiers: Encounter type: initial encounter Qualified Code(s): W19.XXXA - Unspecified fall, initial encounter Headache Qualifiers: Headache type: post-traumatic Headache chronicity pattern: acute headache Intractability: not intractable Qualified Code(s): G44.319 - Acute post- traumatic headache, not intractable Disposition: DC-01 TO HOME OR SELFCARE Is pt being admited?: No Does the pt Need Aspirin: No Condition: Stable Instructions: Acute Headache (ED), Fall Prevention for Older Adults (ED), Mu sculoskeletal Pain (ED), Degenerative Disc Disease (ED) Additional Instructions: Follow up with Primary care physician and Neurologist as instructed If your condition worsens, return to hospital Take motrin as prescribed, and take this medication with food as it can cause nausea and irritation to stomach lining Increase your fluid intake. Prescriptions: Ibuprofen [Motrin 600 MG tab] 600 mg PO Q8H PRN #12 tablet PRN Reason: Pain Referrals: TWIN SCHROEDER MD [Staff Physician] - 2-3 Days [facility] [Outside] - 2-3 Days Forms: Work/School Release Form(ED)
[2019-02-05] MEDS ORDERED: ACETAMINOPHEN W/CODEINE 300-30 MG TAB PO ONE (20:04)
[2019-02-05] MEDS ORDERED: CYCLOBENZAPRINE 10 MG TAB PO ONE (20:04)
--- NOTE | 2019-02-05 21:24 | Cat Scan Report ---
CT head/brain wo con INDICATION: Fall, head injury. TECHNIQUE: Routine CT head without contrast. All CT scans at this location are performed using CT dose reduction for ALARA by means of automated exposure control. COMPARISON: None. FINDINGS: BRAIN / INTRACRANIAL CONTENTS: There is no acute hemorrhage, brain edema, hydrocephalus, or adverse m ass effect. There is an extra-axial CSF attenuation fluid collection over the left frontal convexity most likely representing an arachnoid cyst. CALVARIUM/SKULL BASE/CRANIOCERVICAL JUNCTION: No evidence of fracture. ORBITS: No significant abnormality of visualized orbits. SINUSES / MASTOIDS: No significant abnormality of visualized sinuses and mastoid air cells. ADDITIONAL FINDINGS: None. IMPRESSION: 1. No acute intracranial abnormality. 2. Extra-axial cystic lesion of the left frontal convexity probably represents a small arachnoid cyst . Signer Name: Jarrod Patrick MD Signed: 02/05/2019 9:20 PM Workstation Name: [email or web address]
--- NOTE | 2019-02-05 21:27 | Cat Scan Report ---
CT CERVICAL SPINE WITHOUT CONTRAST INDICATION: neck pain after falling dizziness. TECHNIQUE: Axial CT images of the spine were obtained. Sagittal and coronal reformatted images were produced. Al l CT scans at this location are performed using CT dose reduction for ALARA by means of automated exp osure control. COMPARISON: None available. FINDINGS: ACUTE FRACTURE(S) OR SUBLUXATION: None. SPINAL DEGENERATIVE CHANGES: Mild degenerative disc disease from C4 through C7 with mild disc height loss and endplate osteophyte permission. No significant spinal canal stenosis. PARASPINAL SOFT TISSUES: No soft tissue swelling or other acute abnormalities. ADDITIONAL FINDINGS: There is an incidental subcutaneous lipoma in the left upper back that is incomp letely visualized. IMPRESSION: 1. No acute fracture or subluxation in the spine in neutral position. 2. Mild degenerative disc disease from C4 through C7. 3. Incompletely visualized incidental subcutaneous lipoma in the left upper back. Signer Name: Jarrod Patrick MD Signed: 02/05/2019 9:23 PM Workstation Name: [id number]
== END 2019-02-05 22:50 | disposition home or self-care (01) ==
LOC: ED 17:40
DX: G93.0 Cerebral cysts (principal); R51 Headache; I10 Essential (primary) hypertension; F17.200 Nicotine dependence, unspecified, uncomplicated; M79.18 Myalgia, other site; W17.89XA Other fall from one level to another, initial encounter; Y93.89 Activity, other specified; Y92.89 Other specified places as the place of occurrence of the external cause; Y99.8 Other external cause status
CPT/HCPCS: 70450; 72100; 72125

== ENCOUNTER 2019-02-11 09:15 | Emergency (ER) | payer MEDICAID ==
[2019-02-11] MEDS ORDERED: KETOROLAC 30 MG/1 ML INJ IV ONE (10:16)
[2019-02-11] MEDS ORDERED: SODIUM CHLORIDE 0.9% 1000 ML 1,000 ML IV ONE (10:16)
[2019-02-11] MEDS ORDERED: METOCLOPRAMIDE 10 MG/2 ML INJ IV ONE (10:16)
[2019-02-11] MEDS ORDERED: diphenhydrAMINE 50 MG/ML VIAL IV ONE (10:16)
--- NOTE | 2019-02-11 10:23 | Emergency Department Report ---
ED Headache HPI - General Chief Complaint: Headache Stated Complaint: HEADACHE Time Seen by Provider: 02/11/19 09:53 - History of Present Illness Initial Comments: Patient is a 58-year-old female presents emergency room with complaints of a frontal headache that began last night. She describes the pain as a pressure. She states she has had associated nausea and 3 episodes of vomiting. She denies any fever, vision changes, numbness, weakness, any other symptoms. Patient was evaluated in the emergency department on 02/[address] head at that time which showed an arachnoid cyst. She has not followed up with her primary care doctor or neurologist. Patient has a past medical history of ovarian cysts and HIV. She states that she is on her antivirals and states that her HIV is undetectable but does not know her CD4 count. She denies any allergies medications. Allergies/Adverse Reactions: Allergies No Known Allergies Allergy (Unverified 06/18/18 15:52) Home Medications: Ambulatory Orders Darunavir/Cobicistat (Nf) [Prezcobix 800 mg-150 mg (Nf)] 1 tab PO DAILY 02/11/19 Emtricitabine/Tenofov Alafenam [Descovy 200-25 mg (Nf)] 1 tab PO QDAY 02/11/19 FLUoxetine [PROzac] 20 mg PO QDAY 02/11/19 SUMAtriptan succinate [SUMAtriptan Succinate] 50 mg PO Q6HR PRN 02/11/19 traZODone [Desyrel] 50 mg PO QHS 02/11/19 ED Review of Systems ROS: Stated complaint: HEADACHE Other details as noted in HPI Comment: All other systems reviewed and negative ED Past Medical Hx - Past Medical History Previous Medical History?: Yes Hx Hypertension: Yes Hx HIV: Yes Additional medical history: Opioid Addiction - Surgical History Past Surgical History?: Yes Additional Surgical History: Ovarian cyst - Social History Smoking Status: Current Every Day Smoker Substance Use Type: None - Medications Home Medications: Home Medications Medication Instructions Recorded Confirmed Last Taken Type Darunavir/Cobicistat (Nf) 1 tab PO DAILY 02/11/19 02/11/19 Unknown History [Prezcobix 800 mg-150 mg (Nf)] Emtricitabine/Tenofov Alafenam 1 tab PO QDAY 02/11/19 02/11/19 Unknown History [Descovy 200-25 mg (Nf)] FLUoxetine [PROzac] 20 mg PO QDAY 02/11/19 02/11/19 02/11/19 08:00 History SUMAtriptan succinate [SUMAtriptan 50 mg PO Q6HR PRN 02/11/19 02/11/19 Unknown History Succinate] traZODone [Desyrel] 50 mg PO QHS 02/11/19 02/11/19 Unknown History ED Physical Exam - General Limitations: No Limitations General appearance: alert, in no apparent distress - Head Head exam: Present: atraumatic, normocephalic - Eye Eye exam: Present: normal appearance, PERRL, EOMI. Absent: scleral icterus, conjunctival injection, nystagmus - ENT ENT exam: Present: mucous membranes moist - Neck Neck exam: Present: full ROM. Absent: meningismus - Respiratory Respiratory exam: Present: normal lung sounds bilaterally. Absent: respiratory distress, wheezes, rales, rhonchi, stridor, chest wall tenderness, accessory muscle use, decreased breath sounds, prolonged expiratory - Cardiovascular Cardiovascular Exam: Present: regular rate, normal rhythm, normal heart sounds. Absent: systolic murmur, diastolic murmur, rubs, gallop - Neurological Exam Neurological exam: Present: alert, oriented X3, CN II-XII intact, normal gait, other (normal finger to nose, normal heel to brooke, 5/5 strength in the BUE/BLE, sensation intact throughout, no focal neuro deficits). Absent: motor sensory deficit - Psychiatric Psychiatric exam: Present: normal affect, normal mood - Skin Skin exam: Present: warm, dry, intact ED Course Vital Signs 02/11/19 02/11/19 09:25 15:44 Temperature 98.2 F 98.9 F Pulse Rate 89 96 H Respiratory 18 18 Rate Blood Pressure 125/82 Blood Pressure 134/94 [Left] O2 Sat by Pulse 96 100 Oximetry - Reevaluation(s) Reevaluation #1: 02/11/19 10:47 Patient expressed to nursing staff that she had suicidal ideations I went to reassess patient and she is tearful patient states that she has suicidal ideations and has a plan to overdose on pills, she states that she cannot "live with HAs every day" She denies any HI or hallucinations Denies any previous suicidal attempts States that she was in a psychiatric facility 10 years ago in [place] for depression mental health clearance labs placed ED hold orders placed stat mental health consult placed Reevaluation #2: 02/11/19 11:53 pt states she is feeling anxious, is requesting something for her anxiety ED Medical Decision Making - Lab Data Result diagrams: 02/11/19 11:05 02/11/19 11:05 Lab Results 02/11/19 02/11/19 02/11/19 Range/Units 11:05 11:05 11:05 WBC 5.6 (4.5-11.0) K/mm3 RBC 5.40 H (3.65-5.03) M/mm3 Hgb 16.7 H (10.1-14.3) gm/dl Hct 50.1 H (30.3-42.9) % MCV 93 (79-97) fl MCH 31 (28-32) pg MCHC 33 (30-34) % RDW 14.3 (13.2-15.2) % Plt Count 235 (140-440) K/mm3 Lymph % (Auto) 47.9 H (13.4-35.0) % Potter % (Auto) 6.6 (0.0-7.3) % Eos % (Auto) 0.3 (0.0-4.3) % Baso % (Auto) 0.4 (0.0-1.8) % Lymph # 2.7 (1.2-5.4) K/mm3 Potter # 0.4 (0.0-0.8) K/mm3 Eos # 0.0 (0.0-0.4) K/mm3 Baso # 0.0 (0.0-0.1) K/mm3 Seg Neutrophils % 44.8 (40.0-70.0) % Seg Neutrophils # 2.5 (1.8-7.7) K/mm3 Sodium 138 (137-145) mmol/L Potassium 4.1 (3.6-5.0) mmol/L Chloride 100.2 (98-107) mmol/L Carbon Dioxide 21 L (22-30) mmol/L Anion Gap 21 mmol/L BUN 16 (7-17) mg/dL Creatinine 0.8 (0.7-1.2) mg/dL Estimated GFR > 60 ml/min BUN/Creatinine Ratio 20 % Glucose 83 (65-100) mg/dL Calcium 9.6 (8.4-10.2) mg/dL Total Bilirubin 0.80 (0.1-1.2) mg/dL AST 75 H (5-40) units/L ALT 44 (7-56) units/L Alkaline Phosphatase 99 (35-129) units/L Total Protein 8.5 H (6.3-8.2) g/dL Albumin 4.5 (3.9-5) g/dL Albumin/Globulin Ratio 1.1 % Urine Color (Yellow) Urine Turbidity (Clear) Urine pH (5.0-7.0) Ur Specific Ransom (1.003-1.030) Urine Protein (Negative) mg/dL Urine Glucose (UA) (Negative) mg/dL Urine Ketones (Negative) mg/dL Urine Blood (Negative) Urine Nitrite (Negative) Urine Bilirubin (Negative) Urine Urobilinogen (<2.0) mg/dL Ur Leukocyte Esterase (Negative) Urine WBC (Auto) (0.0-6.0) /HPF Urine RBC (Auto) (0.0-6.0) /HPF U Epithel Cells (Auto) (0-13.0) /HPF Urine Bacteria (Auto) (Negative) /HPF Hyaline Casts /LPF Urine Mucus /HPF Salicylates 2.8 (2.8-20.0) mg/dL Urine Opiates Screen Urine Methadone Screen Acetaminophen (10.0-30.0) ug/mL Ur Barbiturates Screen Ur Phencyclidine Scrn Ur Amphetamines Screen U Benzodiazepines Scrn Urine Cocaine Screen Plasma/Serum Alcohol (0-0.07) % 02/11/19 02/11/19 02/11/19 Range/Units 11:05 11:05 Unknown WBC (4.5-11.0) K/mm3 RBC (3.65-5.03) M/mm3 Hgb (10.1-14.3) gm/dl Hct (30.3-42.9) % MCV (79-97) fl MCH (28-32) pg MCHC (30-34) % RDW (13.2-15.2) % Plt Count (140-440) K/mm3 Lymph % (Auto) (13.4-35.0) % Potter % (Auto) (0.0-7.3) % Eos % (Auto) (0.0-4.3) % Baso % (Auto) (0.0-1.8) % Lymph # (1.2-5.4) K/mm3 Potter # (0.0-0.8) K/mm3 Eos # (0.0-0.4) K/mm3 Baso # (0.0-0.1) K/mm3 Seg Neutrophils % (40.0-70.0) % Seg Neutrophils # (1.8-7.7) K/mm3 Sodium (137-145) mmol/L Potassium (3.6-5.0) mmol/L Chloride (98-107) mmol/L Carbon Dioxide (22-30) mmol/L Anion Gap mmol/L BUN (7-17) mg/dL Creatinine (0.7-1.2) mg/dL Estimated GFR ml/min BUN/Creatinine Ratio % Glucose (65-100) mg/dL Calcium (8.4-10.2) mg/dL Total Bilirubin (0.1-1.2) mg/dL AST (5-40) units/L ALT (7-56) units/L Alkaline Phosphatase (35-129) units/L Total Protein (6.3-8.2) g/dL Albumin (3.9-5) g/dL Albumin/Globulin Ratio % Urine Color Alina (Yellow) Urine Turbidity Clear (Clear) Urine pH 6.0 (5.0-7.0) Ur Specific Ransom 1.027 (1.003-1.030) Urine Protein 30 mg/dl (Negative) mg/dL Urine Glucose (UA) Neg (Negative) mg/dL Urine Ketones Tr (Negative) mg/dL Urine Blood Neg (Negative) Urine Nitrite Neg (Negative) Urine Bilirubin Neg (Negative) Urine Urobilinogen 4.0 (<2.0) mg/dL Ur Leukocyte Esterase Mod (Negative) Urine WBC (Auto) 3.0 (0.0-6.0) /HPF Urine RBC (Auto) 2.0 (0.0-6.0) /HPF U Epithel Cells (Auto) 8.0 (0-13.0) /HPF Urine Bacteria (Auto) 1+ (Negative) /HPF Hyaline Casts 4 /LPF Urine Mucus 3+ /HPF Salicylates (2.8-20.0) mg/dL Urine Opiates Screen Urine Methadone Screen Acetaminophen < 5.0 L (10.0-30.0) ug/mL Ur Barbiturates Screen Ur Phencyclidine Scrn Ur Amphetamines Screen U Benzodiazepines Scrn Urine Cocaine Screen Plasma/Serum Alcohol < 0.01 (0-0.07) % 02/11/19 Range/Units Unknown WBC (4.5-11.0) K/mm3 RBC (3.65-5.03) M/mm3 Hgb (10.1-14.3) gm/dl Hct (30.3-42.9) % MCV (79-97) fl MCH (28-32) pg MCHC (30-34) % RDW (13.2-15.2) % Plt Count (140-440) K/mm3 Lymph % (Auto) (13.4-35.0) % Potter % (Auto) (0.0-7.3) % Eos % (Auto) (0.0-4.3) % Baso % (Auto) (0.0-1.8) % Lymph # (1.2-5.4) K/mm3 Potter # (0.0-0.8) K/mm3 Eos # (0.0-0.4) K/mm3 Baso # (0.0-0.1) K/mm3 Seg Neutrophils % (40.0-70.0) % Seg Neutrophils # (1.8-7.7) K/mm3 Sodium (137-145) mmol/L Potassium (3.6-5.0) mmol/L Chloride (98-107) mmol/L Carbon Dioxide (22-30) mmol/L Anion Gap mmol/L BUN (7-17) mg/dL Creatinine (0.7-1.2) mg/dL Estimated GFR ml/min BUN/Creatinine Ratio % Glucose (65-100) mg/dL Calcium (8.4-10.2) mg/dL Total Bilirubin (0.1-1.2) mg/dL AST (5-40) units/L ALT (7-56) units/L Alkaline Phosphatase (35-129) units/L Total Protein (6.3-8.2) g/dL Albumin (3.9-5) g/dL Albumin/Globulin Ratio % Urine Color (Yellow) Urine Turbidity (Clear) Urine pH (5.0-7.0) Ur Specific Ransom (1.003-1.030) Urine Protein (Negative) mg/dL Urine Glucose (UA) (Negative) mg/dL Urine Ketones (Negative) mg/dL Urine Blood (Negative) Urine Nitrite (Negative) Urine Bilirubin (Negative) Urine Urobilinogen (<2.0) mg/dL Ur Leukocyte Esterase (Negative) Urine WBC (Auto) (0.0-6.0) /HPF Urine RBC (Auto) (0.0-6.0) /HPF U Epithel Cells (Auto) (0-13.0) /HPF Urine Bacteria (Auto) (Negative) /HPF Hyaline Casts /LPF Urine Mucus /HPF Salicylates (2.8-20.0) mg/dL Urine Opiates Screen Presumptive negative Urine Methadone Screen Presumptive negative Acetaminophen (10.0-30.0) ug/mL Ur Barbiturates Screen Presumptive negative Ur Phencyclidine Scrn Presumptive negative Ur Amphetamines Screen Presumptive negative U Benzodiazepines Scrn Presumptive negative Urine Cocaine Screen Presumptive negative Plasma/Serum Alcohol (0-0.07) % - Medical Decision Making Patient is a 58-year-old female presents emergency room with complaints of a frontal headache that began last night. She describes the pain as a pressure. She states she has had associated nausea and 3 episodes of vomiting. She denies any fever, vision changes, numbness, weakness, any other symptoms. Patient was evaluated in the emergency department on 02/[address] head at that time which showed an arachnoid cyst. She has not followed up with her primary care doctor or neurologist. Patient has a past medical history of ovarian cysts and HIV. She states that she is on her antivirals and states that her HIV is unde tectable but does not know her CD4 count. She denies any allergies medications. VSS. Patient expressed to nursing staff that she had suicidal ideations I went to reassess patient and she is tearful patient states that she has suicidal ideations and has a plan to overdose on pills, she states that she cannot "live with HAs every day" She denies any HI or hallucinations Denies any previous suicidal attempts States that she was in a psychiatric facility 10 years ago in [place] for depression mental health clearance labs placed ED hold orders placed stat mental health consult placed labs are stable, elevated AST. UA is stable, only 3 WBCs present, to be considered UTI would have to be >6 WBCs. UDS positive for marijuana Patient does not have a medical emergency at this time preventing mental health evaluation and/or transfer to a mental health facility as deemed appropriate by mental health personnel Patient will be transferred upstairs to the [facility] psych unit - Differential Diagnosis migraine, cluster [place], post concussion syndrome, tension [place] Critical care attestation.: If time is entered above; I have spent that time in minutes in the direct care of this critically ill patient, excluding procedure time. ED Disposition Clinical Impression: Suicidal ideations Headache Qualifiers: Headache type: unspecified Headache chronicity pattern: acute headache Intractability: not intractable Qualified Code(s): R51 - Headache Disposition: DC/TX-65 PSY HOSP/PSY UNIT Is pt being admited?: No Does the pt Need Aspirin: No Condition: Stable Additional Instructions: Please follow-up with a neurologist and your primary care doctor in the next 2-3 days. Return to the emergency room for any new or worsening symptoms. [facility] - [facility]-3 Days OWEN STAPLES MD [Staff Physician] - 2-3 Days SHANNAN FERNANDES MD [Referring] - 2-3 Days Time of Disposition: 17:15 Print Language: SINHALA
[2019-02-11 11:26] LABS: Bacteria,Urine 1+ /HPF (Negative); Bilirubin,Urine NEG (Negative); Blood,Urine NEG (Negative); Color,Urine Amber (Yellow); Hyaline Casts,Urine 4 /LPF; Mucus,Urine 3+ /HPF
[2019-02-11 11:33] LABS: Amphetamine Screen,Urine PRESUMPTIVE NEGATIVE; Benzodiazepines Screen,Urine PRESUMPTIVE NEGATIVE; Cocaine Screen,Urine PRESUMPTIVE NEGATIVE; Methadone Screen,Urine PRESUMPTIVE NEGATIVE; Opiate Screen,Urine PRESUMPTIVE NEGATIVE
[2019-02-11] MEDS ORDERED: SUMAtriptan SUCCINATE 6 MG/0.5 ML INJ SUB-Q ONE (11:33)
[2019-02-11 11:34] LABS: Alanine Aminotransferase 44 units/L (7-56); Albumin 4.5 g/dL (3.9-5); BUN/Creatinine Ratio 20; Blood Urea Nitrogen 16 mg/dL (7-17); Calcium 9.6 mg/dL (8.4-10.2); Hemolysis Index 17
[2019-02-11 11:36] LABS: Basophils % (Auto) 0.4 % (0.0-1.8); Eosinophils % (Auto) 0.3 % (0.0-4.3); Hematocrit 50.1 % (30.3-42.9); Hemoglobin 16.7 gm/dl (10.1-14.3); Lymphocytes # (Auto) 2.7 K/mm3 (1.2-5.4); Lymphocytes % (Auto) 47.9 % (13.4-35.0); Mean Corpuscular HGB Conc 33 % (30-34); Mean Corpuscular Volume 93 fl (79-97); Monocytes # (Auto) 0.4 K/mm3 (0.0-0.8); Monocytes % (Auto) 6.6 % (0.0-7.3); Platelet Count 235 K/mm3 (140-440); Red Cell Distribution Width 14.3 % (13.2-15.2)
[2019-02-11 11:48] LABS: Cannabinoid Screen,Urine PRESUMPTIVE POSITIVE
[2019-02-11] MEDS ORDERED: LORazepam 1 MG TAB PO ONE (11:53)
[2019-02-11 22:02] VITALS: BP 96/52
== END 2019-02-11 19:53 ==
LOC: ED 09:15 → EEVIPCON 09:15 → ED 19:53
DX: R51 Headache (principal); R11.2 Nausea with vomiting, unspecified; I10 Essential (primary) hypertension; F17.200 Nicotine dependence, unspecified, uncomplicated; Z21 Asymptomatic human immunodeficiency virus [HIV] infection status; Z79.899 Other long term (current) drug therapy
CPT/HCPCS: 36415; 80053; 80307; 81001; 85025; 96361; 96372; 96374; 96375; 99284; J1200; J2765; J7030; 80320; G0480; J1885; J3030

== ENCOUNTER 2019-02-11 18:29 | Inpatient (IN) | payer MEDICAID ==
[2019-02-11] MEDS ORDERED: SUMAtriptan SUCCINATE 50 MG TAB PO PRN (18:51)
[2019-02-11] MEDS ORDERED: LORazepam 1 MG TAB PO ONE (22:00)
[2019-02-11] MEDS ORDERED: oxyCODONE /ACETAMINOPHEN 5-325MG TAB PO ONE (22:00)
[2019-02-11] MEDS: traZODone 50 MG TAB PO SCH (22:08)
[2019-02-12] MEDS ORDERED: DARUNAVIR PO SCH (10:00)
[2019-02-12] MEDS ORDERED: TENOFOV ALAFENAM PO SCH (10:00)
[2019-02-12] MEDS ORDERED: FLUoxetine 20 MG CAP PO SCH (10:00)
[2019-02-12] MEDS ORDERED: EMTRICITABINE PO SCH (10:00)
[2019-02-12] MEDS ORDERED: COBICISTAT PO SCH (10:00)
--- NOTE | 2019-02-12 10:32 | History and Physical Report ---
GP History & Physical - History of Present Illness Date of admission: 02/11/19 Date of Examination: 02/12/19 Reason for Admission: Danger to self, Severe anxiety/depression Chief Complaint: I am scared about the cyst growing bigger. History of Present Illness: The patient is a single disabled 58 year old female with a history of Bipolar disorder, schizophrenia and multiple medical problems listed below The patient states she has been really depressed lately after recently finding out that she has a cyst in her brain. She has had a cyst before and knows how fast they can grow and it is scaring her. The patient states that she is having severe headaches as a result of the cyst, and they are so bad at times she can't walk. The patient states that she has been having thoughts of suicide for juan hs. The patient has not been eating or sleeping well, and hears voices that tells her "to do this or do that" PAST PSYCHIATRIC HISTORY: The patient has been hospitalized 2 times before, the last time was 2009 when last attempted to commit suicide. The patient reports that she has seen a psychiatrist before. Previous psychiatric medications tried: FLUOXETINE TRAZODONE PAST MEDICAL /SURGICAL HISTORY: HIV OPIATES OVARIAN CYSTS ARACHNOID CYST HTN Allergies: NKDA FAMILY PSYCHIATRY HISTORY The patient states that her family has a history of psychiatric problems. Her mother suffers from bipolar disorder, and schizophrenia. SOCIAL HISTORY Ms. Landa lives with her fiancee. Legal problems: None Substance Abuse: The patient used to smoke crack 20 years ago, smokes cigarettes, and does not drink. Access to guns: patient denies Education: The patient stopped school in the 11th grade. History of Abuse: No REVIEW OF SYSTEMS Constitutional: Negative for weight loss ENT: Negative for stridor Respiratory: Negative for cough or hemoptysis All other systems reviewed and are negative Legal Status: Voluntary Patient Problems: Current Active Problems Schizoaffective disorder, depressive type (Acute) Reaction to Hospitalization: Accepting Medications and Allergies Allergies Allergy/AdvReac Type Severity Reaction Status Date / Time No Known Allergies Allergy Unverified 06/18/18 15:52 Home Medications Medication Instructions Recorded Confirmed Last Taken Type Darunavir/Cobicistat (Nf) 1 tab PO DAILY 02/11/19 02/11/19 Unknown History [Prezcobix 800 mg-150 mg (Nf)] Emtricitabine/Tenofov Alafenam 1 tab PO QDAY 02/11/19 02/11/19 Unknown History [Descovy 200-25 mg (Nf)] FLUoxetine [PROzac] 20 mg PO QDAY 02/11/19 02/11/19 02/11/19 08:00 History SUMAtriptan succinate [SUMAtriptan 50 mg PO Q6HR PRN 02/11/19 02/11/19 Unknown History Succinate] traZODone [Desyrel] 50 mg PO QHS 02/11/19 02/11/19 Unknown History Active Meds: Active Medications Duloxetine HCl (Cymbalta) 60 mg PO QDAY [facility] Gabapentin (Gabapentin) 300 mg PO TID [facility] Melatonin (Melatonin) 10 mg PO QHS [facility] Mirtazapine (Remeron) 15 mg PO QHS [facility] Miscellaneous Medication (Darunavir/Cobicistat (Nf)) 1 tab PO DAILY [facility] Miscellaneous Medication (Emtricitabine/Tenofov Alafenam) 1 tab PO QDAY [facility] Oxycodone/Acetaminophen (Percocet 5/325) 1 tab PO Q8H PRN PRN Reason: Pain, Moderate (4-6) Sumatriptan Succinate (Imitrex) 50 mg PO Q6HR PRN PRN Reason: Headache Trazodone HCl (Desyrel) 50 mg PO QHS [facility] Last Admin: 02/11/19 22:08 Dose: 50 mg Documented by: Results - Results Labs/Vitals: Last Vital Signs Temp Pulse Resp 16 02/11/19 22:00 BP Pulse Ox Physical Examination - Constitutional Vitals: Vital Signs Temp Pulse Resp BP Pulse Ox 16 02/11/19 22:00 General appearance: Present: no acute distress, well-nourished - EENT Eyes: Present: PERRL, EOM intact ENT: hearing intact, clear oral mucosa - Neck Neck: Present: supple, normal ROM - Respiratory Respiratory effort: normal Mental Status Exam - Vital signs Last Vital Signs Temp Pulse Resp 16 02/11/19 22:00 BP Pulse Ox - Exam Orientation: time, place, person Affect: depressed, anxious Mood: congruent with affect Thought content: delusions, somatic Thought Process: Intact Perceptions: none Speech: normal rate and pattern Concentration: focused Motor activity: normal Level of consciousness: alert Memory: Intact Sleep Symptoms: Insomnia Interaction: cooperative Assessment and Plan - Psychiatric problem (1) Schizoaffective disorder, depressive type Current Visit: Yes Status: Acute plan to address problem: Patient will be admitted for inpatient psychiatric evaluation, medication adjustment and close monitoring The patient's behavior, mood, sleep and appetite will be closely monitored. Patient will be enrolled in individual and group therapeutic sessions and enc ouraged to attend. Patient will be provided with a safe and structured environment. Patient's physical health needs will be addressed by the Hospitalist. Hospitalist Consulted Labs including CBC, CMP, Lipid profile and Hemoglobin A1C ordered Social Assessment will be completed and the Chief Green Officer will work with patient and family to ensure a suitable and safe disposition Medication adjustment will be made as clinically indicated The patient agreed on the treatment plan, understood the risk, benefit, alternative treatment, potential consequence of no treatment, and gave informed consent. Physician Certification - Certification Statement Physician Certification Statement: This is an acknowledgement statement that BRENDA LANDA is a 58 year old F who requires inpatient psychiatric admission for treatment which could reasonably be expected to improve the patient's condition for Estimated period of time patient will need to remain in the hospital: [ ] Plan for post-hospital care: [ ]
[2019-02-12] MEDS: oxyCODONE /ACETAMINOPHEN 5-325MG TAB PO PRN ×2 (10:56→21:18)
[2019-02-12] MEDS: DULoxetine 30 MG CAP PO SCH (10:57)
[2019-02-12] MEDS: GABAPENTIN 300 MG CAP PO SCH ×2 (14:09→20:53)
--- NOTE | 2019-02-12 15:19 | Consultation ---
History of Present Illness - Reason for Consult Consult date: 02/12/19 medical management - History of Present Illness Patient is a 58-year-old -Iranian female with history of HIV dx and migraine headaches who was admitted to the geriatric psych unit. Consult was placed for medical management. She complained of 2-3 wks h/o worsening headaches. He has asso nausea without vomiting, dry cough, and abd cramps. She denies chest pain, sob, palpitations, leg swelling, dizziness, syncope or LOC. No constipation, diarrhea, dysuria or frequency. Past History Past Medical History: HIV/AIDS, other (migraine headaches, schizophrenia and bipolar disorder) Past Surgical History: , Other (RT ovarian cyst removal) Social history: smoking (for 30 yrs. she admits to 5 years history of marijuana use but denies other illicit drug use) Family history: hypertension (parents) Medications and Allergies Allergies Allergy/AdvReac Type Severity Reaction Status Date / Time No Known Allergies Allergy Unverified 06/18/18 15:52 Home Medications Medication Instructions Recorded Confirmed Last Taken Type Darunavir/Cobicistat (Nf) 1 tab PO DAILY 02/11/19 02/11/19 Unknown History [Prezcobix 800 mg-150 mg (Nf)] Emtricitabine/Tenofov Alafenam 1 tab PO QDAY 02/11/19 02/11/19 Unknown History [Descovy 200-25 mg (Nf)] FLUoxetine [PROzac] 20 mg PO QDAY 02/11/19 02/11/19 02/11/19 08:00 History SUMAtriptan succinate [SUMAtriptan 50 mg PO Q6HR PRN 02/11/19 02/11/19 Unknown History Succinate] traZODone [Desyrel] 50 mg PO QHS 02/11/19 02/11/19 Unknown History Active Meds: Active Medications Duloxetine HCl (Cymbalta) 60 mg PO QDAY [facility] Last Admin: 02/12/19 10:57 Dose: 60 mg Documented by: Gabapentin (Gabapentin) 300 mg PO TID [facility] Last Admin: 02/12/19 14:09 Dose: 300 mg Documented by: Melatonin (Melatonin) 10 mg PO QHS [facility] Mirtazapine (Remeron) 15 mg PO QHS [facility] Oxycodone/Acetaminophen (Percocet 5/325) 1 tab PO Q8H PRN PRN Reason: Pain, Moderate (4-6) Last Admin: 02/12/19 10:56 Dose: 1 tab Documented by: Sumatriptan Succinate (Imitrex) 50 mg PO Q6HR PRN PRN Reason: Headache Trazodone HCl (Desyrel) 50 mg PO QHS [facility] Last Admin: 02/11/19 22:08 Dose: 50 mg Documented by: Review of Systems All systems: negative (all other systems reviewed with the patient and are negative unless otherwise stated) Exam - Constitutional Vitals: Temp Pulse Resp BP Pulse Ox 16 02/11/19 22:00 General appearance: Present: no acute distress, well-nourished - EENT Eyes: Present: PERRL, EOM intact ENT: hearing intact, clear oral mucosa - Neck Neck: Present: supple, normal ROM - Respiratory Respiratory effort: normal Respiratory: bilateral: CTA - Cardiovascular Rhythm: regular Heart Sounds: Present: S1 & S2. Absent: rub, click - Extremities Extremities: No edema Peripheral Pulses: within normal limits - Abdominal General gastrointestinal: Present: soft, non-tender, non-distended, normal bowel sounds Female genitourinary: Present: deferred - Integumentary Integumentary: Present: clear, warm, dry - Musculoskeletal Musculoskeletal: gait normal, strength equal bilaterally - Psychiatric Psychiatric: cooperative - Neurologic Neurologic: CNII-XII intact, moves all extremities Assessment and Plan HIV dx -cont home meds Migraine headaches -cont sumatriptan PRN Schizophrenia/Bipolar disorder -mgx per psych team Thank you for the consult Tiem spent: 38 mins
[2019-02-12] MEDS: COBICISTAT PO SCH (16:27)
[2019-02-12] MEDS: DARUNAVIR PO SCH (16:27)
[2019-02-12] MEDS: EMTRICITABINE/TENOFOVIR ALAFENAMIDE (NF) TAB PO SCH (16:27)
[2019-02-12] MEDS: MELATONIN 5 MG TAB PO SCH (21:17)
[2019-02-12] MEDS: traZODone 50 MG TAB PO SCH (21:17)
[2019-02-12] MEDS: MIRTAZAPINE 15 MG TAB PO SCH (21:18)
[2019-02-13] MEDS: DARUNAVIR PO SCH (10:13)
[2019-02-13] MEDS: COBICISTAT PO SCH (10:13)
[2019-02-13] MEDS: GABAPENTIN 300 MG CAP PO SCH ×3 (10:14→20:58)
[2019-02-13] MEDS: DULoxetine 30 MG CAP PO SCH (10:14)
[2019-02-13] MEDS: EMTRICITABINE/TENOFOVIR ALAFENAMIDE (NF) TAB PO SCH (10:15)
[2019-02-13] MEDS: oxyCODONE /ACETAMINOPHEN 5-325MG TAB PO PRN ×2 (10:24→19:04)
--- NOTE | 2019-02-13 11:29 | Progress Note ---
Subjective Date of service: 02/13/19 Principal diagnosis: Schizoaffective disorder, depressive type Subjective Comment: In my interview this morning with the patient, the patient stated she was in a good mood and felt refreshed. She reported that the meds that she had been given were working great, she is sleeping well and doesn't feel depressed.The patient stated that her concern was the pain of the cyst in her head, and requested that her Percocet be administered every 4-6 hours instead of every 8. Objective - Criteria for Continued Treatment Criteria for Continued Treatment: Improving Level of Functioning, Stablizing Level of Functioning, Improving Emotional/Socia - Objective Observation Participation Level: Full Assessment and Plan - Patient Problems (1) Schizoaffective disorder, depressive type Current Visit: Yes Status: Acute Plan to address problem: Continue inpatient psychiatric evaluation, medication adjustment and close monitoring The patient's behavior, mood, sleep and appetite will be closely monitored. Patient will be enrolled in individual and group therapeutic sessions and encouraged to attend. Patient will be provided with a safe and structured environment. Patient's physical health needs will be addressed by the Hospitalist. Hospitalist Consulted Social Assessment will be completed and the Cardiac Monitor Technician will work with patient and family to ensure a suitable and safe disposition Medication adjustment will be made as clinically indicated The patient agreed on the treatment plan, understood the risk, benefit, alternative treatment, potential consequence of no treatment, and gave informed consent. Medications and Allergies Allergies Allergy/AdvReac Type Severity Reaction Status Date / Time No Known Allergies Allergy Unverified 06/18/18 15:52 Home Medications Medication Instructions Recorded Confirmed Last Taken Type Darunavir/Cobicistat (Nf) 1 tab PO DAILY 02/11/19 02/11/19 Unknown History [Prezcobix 800 mg-150 mg (Nf)] Emtricitabine/Tenofov Alafenam 1 tab PO QDAY 02/11/19 02/11/19 Unknown History [Descovy 200-25 mg (Nf)] FLUoxetine [PROzac] 20 mg PO QDAY 02/11/19 02/11/19 02/11/19 08:00 History SUMAtriptan succinate [SUMAtriptan 50 mg PO Q6HR PRN 02/11/19 02/11/19 Unknown History Succinate] traZODone [Desyrel] 50 mg PO QHS 02/11/19 02/11/19 Unknown History Active Meds: Active Medications Duloxetine HCl (Cymbalta) 60 mg PO QDAY [facility] Last Admin: 02/13/19 10:14 Dose: 60 mg Documented by: Gabapentin (Gabapentin) 300 mg PO TID [facility] Last Admin: 02/13/19 10:14 Dose: 300 mg Documented by: Melatonin (Melatonin) 10 mg PO QHS [facility] Last Admin: 02/12/19 21:17 Dose: 10 mg Documented by: Mirtazapine (Remeron) 15 mg PO QHS [facility] Last Admin: 02/12/19 21:18 Dose: 15 mg Documented by: Oxycodone/Acetaminophen (Percocet 5/325) 1 tab PO Q8H PRN PRN Reason: Pain, Moderate (4-6) Last Admin: 02/13/19 10:24 Dose: 1 tab Documented by: Sumatriptan Succinate (Imitrex) 50 mg PO Q6HR PRN PRN Reason: Headache Last Admin: 02/13/19 10:15 Dose: 50 mg Documented by: Trazodone HCl (Desyrel) 50 mg PO QHS [facility] Last Admin: 02/12/19 21:17 Dose: 50 mg Documented by: Results - Results Labs/Vitals: Last Vital Signs Temp 98.4 F 02/12/19 22:00 Pulse 84 02/12/19 22:00 Resp 18 02/12/19 22:00 BP 128/84 02/13/19 09:16 Pulse Ox 99 02/12/19 22:00 Mental Status Exam - Vital signs Last Vital Signs Temp 98.6 F 02/14/19 07:58 Pulse 117 H 02/14/19 07:58 Resp 18 02/14/19 07:58 BP 139/90 02/14/19 07:58 Pulse Ox 98 02/14/19 07:58 - Exam Orientation: time, place, person Affect: normal Mood: congruent with affect Thought content: other (No SI/HI) Thought Process: Intact Perceptions: none Speech: normal rate and pattern Concentration: focused Motor activity: normal Level of consciousness: alert Memory: Intact Sleep Symptoms: None Interaction: cooperative
[2019-02-13] MEDS: traZODone 50 MG TAB PO SCH (21:22)
[2019-02-13] MEDS: MIRTAZAPINE 15 MG TAB PO SCH (21:22)
[2019-02-13] MEDS: MELATONIN 5 MG TAB PO SCH (21:22)
[2019-02-14] MEDS: GABAPENTIN 300 MG CAP PO SCH ×3 (07:40→20:26)
[2019-02-14] MEDS: DARUNAVIR PO SCH (09:34)
[2019-02-14] MEDS: EMTRICITABINE/TENOFOVIR ALAFENAMIDE (NF) TAB PO SCH (09:34)
[2019-02-14] MEDS: DULoxetine 30 MG CAP PO SCH (09:34)
[2019-02-14] MEDS: COBICISTAT PO SCH (09:34)
--- NOTE | 2019-02-14 09:42 | Progress Note ---
Subjective Date of service: 02/14/19 Principal diagnosis: Schizoaffective disorder, depressive type Subjective Comment: Patient seen today, per Nursing note: patient is alert and oriented x4, calm and cooperative, denies SI/HI, denies A/V/H, interacts well with peers, able to make needs known, pt is compliant with medication, good appetite, self care, denies pain, no distress noted, q15 minutes on going for safety. In my interview with the patient this morning, she reports Assessment and Plan - Patient Problems (1) Schizoaffective disorder, depressive type Current Visit: Yes Status: Acute Medications and Allergies Allergies Allergy/AdvReac Type Severity Reaction Status Date / Time No Known Allergies Allergy Unverified 06/18/18 15:52 Home Medications Medication Instructions Recorded Confirmed Last Taken Type Darunavir/Cobicistat (Nf) 1 tab PO DAILY 02/11/19 02/11/19 Unknown History [Prezcobix 800 mg-150 mg (Nf)] Emtricitabine/Tenofov Alafenam 1 tab PO QDAY 02/11/19 02/11/19 Unknown History [Descovy 200-25 mg (Nf)] FLUoxetine [PROzac] 20 mg PO QDAY 02/11/19 02/11/19 02/11/19 08:00 History SUMAtriptan succinate [SUMAtriptan 50 mg PO Q6HR PRN 02/11/19 02/11/19 Unknown History Succinate] traZODone [Desyrel] 50 mg PO QHS 02/11/19 02/11/19 Unknown History Active Meds: Active Medications Duloxetine HCl (Cymbalta) 60 mg PO QDAY [facility] Last Admin: 02/14/19 09:34 Dose: 60 mg Documented by: Gabapentin (Gabapentin) 300 mg PO TID [facility] Last Admin: 02/13/19 20:58 Dose: 300 mg Documented by: Melatonin (Melatonin) 10 mg PO QHS [facility] Last Admin: 02/13/19 21:22 Dose: 10 mg Documented by: Mirtazapine (Remeron) 15 mg PO QHS [facility] Last Admin: 02/13/19 21:22 Dose: 15 mg Documented by: Oxycodone/Acetaminophen (Percocet 5/325) 1 tab PO Q6H PRN PRN Reason: Pain, Moderate (4-6) Sumatriptan Succinate (Imitrex) 50 mg PO Q6HR PRN PRN Reason: Headache Last Admin: 02/13/19 10:15 Dose: 50 mg Documented by: Trazodone HCl (Desyrel) 50 mg PO QHS [facility] Last Admin: 02/13/19 21:22 Dose: 50 mg Documented by: Results - Results Labs/Vitals: Last Vital Signs Temp 98.6 F 02/14/19 07:58 Pulse 117 H 02/14/19 07:58 Resp 18 02/14/19 07:58 BP 139/90 02/14/19 07:58 Pulse Ox 98 02/14/19 07:58
--- NOTE | 2019-02-14 11:48 | Progress Note ---
Subjective Date of service: 02/14/19 Principal diagnosis: Schizoaffective disorder, depressive type Subjective Comment: Patient seen today, per Nursing note: patient is alert and oriented x4, calm and cooperative, denies SI/HI, denies A/V/H, interacts well with peers, able to make needs known, pt is compliant with medication, good appetite, self care, denies pain, no distress noted, q15 minutes on going for safety. In my interview with the patient this morning, she reports She is feeling better, sleeping well, no SI/HI, no voice, no thoughts of harm to anyone, no side effects to meds, interacts with peers, good appetite. REVIEW OF SYSTEMS Constitutional: Negative for weight loss ENT: Negative for stridor Respiratory: Negative for cough or hemoptysis All other systems reviewed and are negative Reaction to Hospitalization: Accepting Mental Status Exam Orientation: time, place, person Affect: better Mood: congruent with affect Thought content: delusions, somatic Thought Process: Intact Perceptions: none Speech: normal rate and pattern Concentration: focused Motor activity: normal Level of consciousness: alert Memory: Intact Sleep Symptoms: Insomnia Interaction: cooperative Assessment and Plan - Psychiatric problem (1) Schizoaffective disorder, depressive type Current Visit: Yes Status: Acute plan to address problem: Continue inpatient psychiatric evaluation, medication adjustment and close monitoring The patient's behavior, mood, sleep and appetite will be closely monitored. Patient will be enrolled in individual and group therapeutic sessions and encouraged to attend. Patient will be provided with a safe and structured environment. Patient's physical health needs will be addressed by the Hospitalist. Hospitalist Consulted Social Assessment will be completed and the Senior Inspector will work with patient and family to ensure a suitable and safe disposition Medication adjustment will be made as clinically indicated The patient agreed on the treatment plan, understood the risk, benefit, alternative treatment, potential consequence of no treatment, and gave informed consent. Assessment and Plan - Patient Problems (1) Schizoaffective disorder, depressive type Current Visit: Yes Status: Acute Medications and Allergies Allergies Allergy/AdvReac Type Severity Reaction Status Date / Time No Known Allergies Allergy Unverified 06/18/18 15:52 Home Medications Medication Instructions Recorded Confirmed Last Taken Type Darunavir/Cobicistat (Nf) 1 tab PO DAILY 02/11/19 02/11/19 Unknown History [Prezcobix 800 mg-150 mg (Nf)] Emtricitabine/Tenofov Alafenam 1 tab PO QDAY 02/11/19 02/11/19 Unknown History [Descovy 200-25 mg (Nf)] FLUoxetine [PROzac] 20 mg PO QDAY 02/11/19 02/11/19 02/11/19 08:00 History SUMAtriptan succinate [SUMAtriptan 50 mg PO Q6HR PRN 02/11/19 02/11/19 Unknown History Succinate] traZODone [Desyrel] 50 mg PO QHS 02/11/19 02/11/19 Unknown History Active Meds: Active Medications Duloxetine HCl (Cymbalta) 60 mg PO QDAY [facility] Last Admin: 02/14/19 09:34 Dose: 60 mg Documented by: Gabapentin (Gabapentin) 300 mg PO TID [facility] Last Admin: 02/14/19 07:40 Dose: 300 mg Documented by: Melatonin (Melatonin) 10 mg PO QHS [facility] Last Admin: 02/13/19 21:22 Dose: 10 mg Documented by: Mirtazapine (Remeron) 15 mg PO QHS [facility] Last Admin: 02/13/19 21:22 Dose: 15 mg Documented by: Oxycodone/Acetaminophen (Percocet 5/325) 1 tab PO Q6H PRN PRN Reason: Pain, Moderate (4-6) Sumatriptan Succinate (Imitrex) 50 mg PO Q6HR PRN PRN Reason: Headache Last Admin: 02/13/19 10:15 Dose: 50 mg Documented by: Trazodone HCl (Desyrel) 50 mg PO QHS [facility] Last Admin: 02/13/19 21:22 Dose: 50 mg Documented by: Results - Results Labs/Vitals: Last Vital Signs Temp 98.6 F 02/14/19 07:58 Pulse 117 H 02/14/19 07:58 Resp 18 02/14/19 07:58 BP 139/90 02/14/19 07:58 Pulse Ox 98 02/14/19 07:58
[2019-02-14] MEDS: oxyCODONE /ACETAMINOPHEN 5-325MG TAB PO PRN ×2 (15:05→21:50)
[2019-02-14] MEDS: MIRTAZAPINE 15 MG TAB PO SCH (21:49)
[2019-02-14] MEDS: MELATONIN 5 MG TAB PO SCH (21:49)
[2019-02-14] MEDS: traZODone 50 MG TAB PO SCH (21:49)
[2019-02-15] MEDS: oxyCODONE /ACETAMINOPHEN 5-325MG TAB PO PRN ×3 (07:28→19:29)
--- NOTE | 2019-02-15 08:33 | Progress Note ---
Subjective Date of service: 02/15/19 Principal diagnosis: Schizoaffective disorder, depressive type Subjective Comment: Patient seen today, per Nursing note: patient is alert and oriented x4, calm and cooperative, denies SI/HI, denies A/V/H, interacts well with peers, able to make needs known, pt is compliant with medication, good appetite, self care, denies pain, no distress noted, q15 minutes on going for safety. In my interview with the patient this morning, she reports she is feeling better, sleeping well,and the meds are working really well and not making her drowsy. The patients stated her appetite is improving, and no SI/HI, no voice, no thoughts of harm to anyone and no side effects to meds. She is focussed on being prescribed Percocet and very likely to relapse if discharge at present time. REVIEW OF SYSTEMS Constitutional: Negative for weight loss ENT: Negative for stridor Respiratory: Negative for cough or hemoptysis All other systems reviewed and are negative Reaction to Hospitalization: Accepting Mental Status Exam Orientation: time, place, person Affect: better Mood: congruent with affect Thought content: somatic Thought Process: Intact Perceptions: none Speech: normal rate and pattern Concentration: focused Motor activity: normal Level of consciousness: alert Memory: Intact Sleep Symptoms: Improved Interaction: cooperative Assessment and Plan - Psychiatric problem (1) Schizoaffective disorder, depressive type Current Visit: Yes Status: Acute plan to address problem: Continue inpatient psychiatric evaluation, medication adjustment and close monitoring The patient's behavior, mood, sleep and appetite will be closely monitored. Patient will be enrolled in individual and group therapeutic sessions and encouraged to attend. Patient will be provided with a safe and structured environment. Patient's physical health needs will be addressed by the Hospitalist. Hospitalist Consulted Social Assessment will be completed and the Candy Bar Attendant will work with patient and family to ensure a suitable and safe disposition Medication adjustment will be made as clinically indicated The patient agreed on the treatment plan, understood the risk, benefit, al ternative treatment, potential consequence of no treatment, and gave informed consent. Assessment and Plan - Patient Problems (1) Schizoaffective disorder, depressive type Current Visit: Yes Status: Acute Medications and Allergies Allergies Allergy/AdvReac Type Severity Reaction Status Date / Time No Known Allergies Allergy Unverified 06/18/18 15:52 Home Medications Medication Instructions Recorded Confirmed Last Taken Type Darunavir/Cobicistat (Nf) 1 tab PO DAILY 02/11/19 02/11/19 Unknown History [Prezcobix 800 mg-150 mg (Nf)] Emtricitabine/Tenofov Alafenam 1 tab PO QDAY 02/11/19 02/11/19 Unknown History [Descovy 200-25 mg (Nf)] FLUoxetine [PROzac] 20 mg PO QDAY 02/11/19 02/11/19 02/11/19 08:00 History SUMAtriptan succinate [SUMAtriptan 50 mg PO Q6HR PRN 02/11/19 02/11/19 Unknown History Succinate] traZODone [Desyrel] 50 mg PO QHS 02/11/19 02/11/19 Unknown History Active Meds: Active Medications Duloxetine HCl (Cymbalta) 60 mg PO QDAY [facility] Last Admin: 02/14/19 09:34 Dose: 60 mg Documented by: Gabapentin (Gabapentin) 300 mg PO TID [facility] Last Admin: 02/14/19 20:26 Dose: 300 mg Documented by: Melatonin (Melatonin) 10 mg PO QHS [facility] Last Admin: 02/14/19 21:49 Dose: 10 mg Documented by: Mirtazapine (Remeron) 15 mg PO QHS [facility] Last Admin: 02/14/19 21:49 Dose: 15 mg Documented by: Oxycodone/Acetaminophen (Percocet 5/325) 1 tab PO Q6H PRN PRN Reason: Pain, Moderate (4-6) Last Admin: 02/15/19 07:28 Dose: 1 tab Documented by: Sumatriptan Succinate (Imitrex) 50 mg PO Q6HR PRN PRN Reason: Headache Last Admin: 02/13/19 10:15 Dose: 50 mg Documented by: Trazodone HCl (Desyrel) 50 mg PO QHS [facility] Last Admin: 02/14/19 21:49 Dose: 50 mg Documented by: Results - Results Labs/Vitals: Last Vital Signs Temp 98.6 F 02/14/19 07:58 Pulse 117 H 02/14/19 07:58 Resp 18 02/14/19 07:58 BP 139/90 02/14/19 07:58 Pulse Ox 98 02/14/19 07:58
[2019-02-15] MEDS: DULoxetine 30 MG CAP PO SCH (10:51)
[2019-02-15] MEDS: GABAPENTIN 300 MG CAP PO SCH ×3 (10:51→21:47)
[2019-02-15] MEDS: EMTRICITABINE/TENOFOVIR ALAFENAMIDE (NF) TAB PO SCH (10:51)
[2019-02-15] MEDS: DARUNAVIR PO SCH (10:52)
[2019-02-15] MEDS: COBICISTAT PO SCH (10:52)
[2019-02-15] MEDS: MIRTAZAPINE 15 MG TAB PO SCH (21:42)
[2019-02-15] MEDS: MELATONIN 5 MG TAB PO SCH (21:42)
[2019-02-15] MEDS: traZODone 50 MG TAB PO SCH (21:43)
[2019-02-16] MEDS: oxyCODONE /ACETAMINOPHEN 5-325MG TAB PO PRN (06:17)
--- NOTE | 2019-02-16 08:03 | Progress Note ---
Subjective Date of service: 02/16/19 Principal diagnosis: Schizoaffective disorder, depressive type Subjective Comment: Patient seen today, per Nursing note: Observed with facial grimacing. C/o headache rated 8/10 and requests Percocet. "Doctor say I should take Percocet," she stated. Percocet 5/325 given as ordered for pain. Will reassess. In my interview with the patient this morning, REVIEW OF SYSTEMS Constitutional: Negative for weight loss ENT: Negative for stridor Respiratory: Negative for cough or hemoptysis All other systems reviewed and are negative Reaction to Hospitalization: Accepting Mental Status Exam Orientation: time, place, person Affect: better Mood: congruent with affect Thought content: somatic Thought Process: Intact Perceptions: none Speech: normal rate and pattern Concentration: focused Motor activity: normal Level of consciousness: alert Memory: Intact Sleep Symptoms: Improved Interaction: cooperative Assessment and Plan - Psychiatric problem (1) Schizoaffective disorder, depressive type Current Visit: Yes Status: Acute plan to address problem: Continue inpatient psychiatric evaluation, medication adjustment and close monitoring The patient's behavior, mood, sleep and appetite will be closely monitored. Patient will be enrolled in individual and group therapeutic sessions and encouraged to attend. Patient will be provided with a safe and structured environment. Patient's physical health needs will be addressed by the Hospitalist. Hospitalist Consulted Social Assessment will be completed and the Line Assigner will work with patient and family to ensure a suitable and safe disposition Medication adjustment will be made as clinically indicated The patient agreed on the treatment plan, understood the risk, benefit, alternative treatment, potential consequence of no treatment, and gave informed consent. Assessment and Plan - Patient Problems (1) Schizoaffective disorder, depressive type Current Visit: Yes Status: Acute Medications and Allergies Allergies Allergy/AdvReac Type Severity Reaction Status Date / Time No Known Allergies Allergy Unverified 06/18/18 15:52 Home Medications Medication Instructions Recorded Confirmed Last Taken Type Darunavir/Cobicistat (Nf) 1 tab PO DAILY 02/11/19 02/11/19 Unknown History [Prezcobix 800 mg-150 mg (Nf)] Emtricitabine/Tenofov Alafenam 1 tab PO QDAY 02/11/19 02/11/19 Unknown History [Descovy 200-25 mg (Nf)] FLUoxetine [PROzac] 20 mg PO QDAY 12/07/2602/11/19 02/11/19 08:00 History SUMAtriptan succinate [SUMAtriptan 50 mg PO Q6HR PRN 02/11/19 02/11/19 Unknown History Succinate] traZODone [Desyrel] 50 mg PO QHS 02/11/19 02/11/19 Unknown History Active Meds: Active Medications Duloxetine HCl (Cymbalta) 60 mg PO QDAY [facility] Last Admin: 02/15/19 10:51 Dose: 60 mg Documented by: Gabapentin (Gabapentin) 300 mg PO TID [facility] Last Admin: 02/15/19 21:47 Dose: 300 mg Documented by: Melatonin (Melatonin) 10 mg PO QHS [facility] Last Admin: 02/15/19 21:42 Dose: 10 mg Documented by: Mirtazapine (Remeron) 15 mg PO QHS [facility] Last Admin: 02/15/19 21:42 Dose: 15 mg Documented by: Oxycodone/Acetaminophen (Percocet 5/325) 1 tab PO Q6H PRN PRN Reason: Pain, Moderate (4-6) Last Admin: 02/16/19 06:17 Dose: 1 tab Documented by: Sumatriptan Succinate (Imitrex) 50 mg PO Q6HR PRN PRN Reason: Headache Last Admin: 02/13/19 10:15 Dose: 50 mg Documented by: Trazodone HCl (Desyrel) 50 mg PO QHS [facility] Last Admin: 02/15/19 21:43 Dose: 50 mg Documented by: Results - Results Labs/Vitals: Last Vital Signs Temp 98.6 F 02/14/19 07:58 Pulse 117 H 02/14/19 07:58 Resp 18 02/15/19 13:42 BP 139/90 02/14/19 07:58 Pulse Ox 98 02/14/19 07:58
[2019-02-16] MEDS: DULoxetine 30 MG CAP PO SCH (09:07)
[2019-02-16] MEDS: GABAPENTIN 300 MG CAP PO SCH (09:07)
[2019-02-16] MEDS: DARUNAVIR PO SCH (09:07)
[2019-02-16] MEDS: COBICISTAT PO SCH (09:07)
[2019-02-16] MEDS: EMTRICITABINE/TENOFOVIR ALAFENAMIDE (NF) TAB PO SCH (09:08)
[2019-02-16 09:09] VITALS: BP 105/75
--- NOTE | 2019-02-16 10:13 | Discharge Summary ---
Providers - Providers Date of Admission: 02/11/19 19:59 Date of discharge: 02/16/19 Attending physician: MAG LONGORIA MD 02/11/19 18:37 Consult to Physician [CONS] Routine Comment: Consulting Provider: ELLIE GRAJEDA Physician Instructions: Reason For Exam: H&P/MEDICAL MANAGEMENT [facility] Reason for admission: Severe anxiety and depression Condition: Good Hospital course: The patient was provided inpatient psychiatric treatment with safe and supportive environment, group/individual therapy, psychiatric medication, medication adjustment, adverse effect monitor, medical evaluation, medical treatment, social service assessment, social support meeting, placement assessment and psycho-education. The patients mood, cognition, behavior, motivation, compliance to treatment and appreciation on family/social support are improved and stabilized. At the time of discharge, the patient had no suicidal ideas, no homicidal ideas, no aggressive thoughts, no endangering behavior and no debilitating adverse effects. The patient agreed on the treatment plan, understood the risk, benefit, alternative treatment, potential consequence of no treatment, and gave informed consent. Disposition: DC-01 TO HOME OR SELFCARE Allergies/Adverse Reactions: Allergies No Known Allergies Allergy (Unverified 06/18/18 15:52) Vital Signs: Last Vital Signs Temp 98.1 F 02/15/19 20:18 Pulse 78 02/15/19 20:18 Resp 17 02/15/19 20:18 BP 105/75 02/15/19 20:18 Pulse Ox 100 02/15/19 20:18 - Discharge Diagnoses (1) Schizoaffective disorder, depressive type Status: Acute Core Measure Documentation - Palliative Care Palliative Care/ Comfort Measures: Not Applicable - Core Measures Any of the following diagnoses?: none Exam - Constitutional Vitals: Temp Pulse Resp BP Pulse Ox 98.1 F 78 17 105/75 100 02/15/19 20:18 02/15/19 20:18 02/15/19 20:18 02/15/19 20:18 02/15/19 20:18 General appearance: Present: no acute distress, well-nourished - EENT Eyes: Present: PERRL, EOM intact ENT: hearing intact, clear oral mucosa - Neck Neck: Present: supple, normal ROM - Respiratory Respiratory effort: normal Plan Activity: advance as tolerated Weight Bearing Status: Weight Bear as Tolerated Care Plan Goals: Maintain good and stable mental health Plan of Treatment: Take medications as prescribed Health Concerns: Headaches Assessment: Schizoaffective disorder, depressed Follow up with: BLESSING CEBALLOS MD [Primary Care Provider] - 7 Days Prescriptions: traZODone [Desyrel] 50 mg PO QHS #30 Melatonin [Melatonin 5MG TAB] 10 mg PO QHS #30 tablet Mirtazapine [Remeron 15mg TAB] 15 mg PO QHS #30 tablet DULoxetine [Cymbalta] 60 mg PO QDAY #60 capsule Gabapentin 300 mg PO TID #90 capsule oxyCODONE /ACETAMINOPHEN [Percocet 5/325 mg] 1 tab PO Q6H PRN #30 tablet PRN Reason: Pain, Moderate (4-6)
== END 2019-02-16 12:05 | disposition home or self-care (01) | DRG 885 ==
LOC: UNDOADMIN 18:29 → 3A 18:29 → 5A 19:59
PROVIDERS: ADMIT Psychiatry & Neurology Psychiatry; ATTEND Psychiatry & Neurology Psychiatry
DX: F25.1 Schizoaffective disorder, depressive type (principal); B20 Human immunodeficiency virus [HIV] disease; G43.909 Migraine, unspecified, not intractable, without status migrainosus; F17.210 Nicotine dependence, cigarettes, uncomplicated; I10 Essential (primary) hypertension; Z81.8 Family history of other mental and behavioral disorders; Z82.49 Family history of ischemic heart disease and other diseases of the circulatory system
CPT/HCPCS: 36415; 80053; 80307; 80320; 81001; 85025; 96361; 96372; 96374; 96375; G0378; G0480; J1200; J1885; J2765; J3030; J7030

== ENCOUNTER 2019-03-22 15:36 | Emergency (ER) | payer MEDICAID ==
[2019-03-22 17:19] VITALS: BP 131/64
== END 2019-03-22 16:50 | disposition left against medical advice (07) ==
LOC: ED 15:36
DX: R07.2 Precordial pain (principal); Z53.21 Procedure and treatment not carried out due to patient leaving prior to being seen by health care provider
CPT/HCPCS: 93005; 93010

== ENCOUNTER 2019-03-25 15:10 | Emergency (ER) | payer MEDICAID ==
--- NOTE | 2019-03-25 15:29 | Emergency Department Report ---
Blank Doc - Documentation Documentation: 58-year-old female that presents with chest pain and SOB. Stated also has anx iety. This initial assessment/diagnostic orders/clinical plan/treatment(s) is/are subject to change based on patient's health status, clinical progression and re- assessment by fellow clinical providers in the ED. Further treatment and workup at subsequent clinical providers discretion. Patient/guardians urged not to elope from the ED as their condition may be serious if not clinically assessed and managed. Initial orders include: 1- Patient sent to [facility] for further evaluation and treatment 2- EKG 3- labs 4- CXR
--- NOTE | 2019-03-25 15:58 | XRay Report ---
CHEST 2 VIEWS INDICATION: Chest Pain. COMPARISON: None. FINDINGS: Support devices: None. Heart: Within normal limits. Pulmonary vasculature: Normal. Lungs/pleura: No acute air space or interstitial disease. No pneumothorax. Additional findings: None. IMPRESSION: 1. No acute findings. Signer Name: Luis Johnson MD Signed: 03/25/2019 3:54 PM Workstation Name: [id number]
[2019-03-25 16:15] LABS: Basophils % (Auto) 0.4 % (0.0-1.8); Eosinophils # (Auto) 0.1 K/mm3 (0.0-0.4); Eosinophils % (Auto) 1.7 % (0.0-4.3); Hematocrit 41.3 % (30.3-42.9); Lymphocytes # (Auto) 2.9 K/mm3 (1.2-5.4); Mean Corpuscular HGB Conc 34 % (30-34); Mean Corpuscular Volume 91 fl (79-97); Monocytes # (Auto) 0.4 K/mm3 (0.0-0.8); Monocytes % (Auto) 5.9 % (0.0-7.3); Platelet Count 164 K/mm3 (140-440); Red Blood Count 4.52 M/mm3 (3.65-5.03); Red Cell Distribution Width 14.6 % (13.2-15.2)
[2019-03-25 16:30] LABS: INR 0.94 (0.87-1.13)
[2019-03-25 16:31] LABS: Partial Thromboplastin Time 29.2 Sec. (24.2-36.6)
[2019-03-25 16:38] LABS: Alanine Aminotransferase 42 units/L (7-56); Albumin 4.1 g/dL (3.9-5); BUN/Creatinine Ratio 18; Blood Urea Nitrogen 11 mg/dL (7-17); Calcium 9.2 mg/dL (8.4-10.2); Hemolysis Index 7
[2019-03-25] MEDS ORDERED: LIDOCAINE VISCOUS 2% 15 ML ORAL LIQD PO ONE (19:19)
[2019-03-25] MEDS ORDERED: ALUM-MAG HYDROXIDE-SIMETHICONE 200-200-20MG/5ML ORAL LIQD 30 ML PO ONE (19:19)
[2019-03-25] MEDS ORDERED: DICYCLOMINE 20 MG TAB PO ONE (19:20)
--- NOTE | 2019-03-25 19:25 | Emergency Department Report ---
ED Chest Pain HPI - General Chief Complaint: Anxiety Stated Complaint: ANXIETY ATTACK/CHEST PAIN Time Seen by Provider: 03/25/19 15:29 Source: EMS Mode of arrival: Stretcher Limitations: No Limitations - History of Present Illness Initial Comments: Patient is a 58-year-old female presents with chest pain that began today. She states it feels like a stabbing sensation and a burning sensation. She states she has mild shortness of breath. She states she has had increased anxiety and believes that her symptoms are related to her anxiety. She states that she takes Ativan but has not had a week and a half. She states that she [facility] an [facility] with [facility] on ([facility]/01/2019). She denies any nausea, vomiting, diarrhea, fever, leg swelling, recent travel, recent surgery, hormone use. She has a past medical history of HIV and states that she is on antivirals and reports she is undetectable. She denies any allergies medicatio ns. She denies any cardiac history. She denies any family history of [place]. Severity scale (0 -10): 10 - Related Data Home Medications Medication Instructions Recorded Confirmed Last Taken Darunavir/Cobicistat (Nf) 1 tab PO DAILY 02/11/19 02/11/19 Unknown [Prezcobix 800 mg-150 mg (Nf)] Emtricitabine/Tenofov Alafenam 1 tab PO QDAY 02/11/19 02/11/19 Unknown [Descovy 200-25 mg (Nf)] SUMAtriptan succinate [SUMAtriptan 50 mg PO Q6HR PRN 02/11/19 02/11/19 Unknown Succinate] Previous Rx's Medication Instructions Recorded Last Taken Type DULoxetine [Cymbalta] 60 mg PO QDAY #60 capsule 02/16/19 Unknown Rx Gabapentin 300 mg PO TID #90 capsule 02/16/19 Unknown Rx Melatonin [Melatonin 5MG TAB] 10 mg PO QHS #30 tablet 02/16/19 Unknown Rx Mirtazapine [Remeron 15mg TAB] 15 mg PO QHS #30 tablet 02/16/19 Unknown Rx oxyCODONE /ACETAMINOPHEN [Percocet 1 tab PO Q6H PRN #30 tablet 02/16/19 Unknown Rx 5/325 mg] traZODone [Desyrel] 50 mg PO QHS #30 02/16/19 Unknown Rx Allergies Allergy/AdvReac Type Severity Reaction Status Date / Time No Known Allergies Allergy Verified 03/22/19 15:40 Heart Score - HEART Score History: Slightly suspicious EKG: Normal Age: 45-65 Risk factors: No known risk factors Troponin: < normal limit HEART Score: 1 ED Review of Systems ROS: Stated complaint: ANXIETY ATTACK/CHEST PAIN Other details as noted in HPI Comment: All other systems reviewed and negative ED Past Medical Hx - Past Medical History Hx Hypertension: Yes Hx Congestive Heart Failure: No Hx Diabetes: No Hx Renal Disease: No Hx Arthritis: No Hx Seizures: No Hx Psychiatric Treatment: Yes (anxiety) Hx Asthma: No Hx COPD: No Hx Dementia: No Hx HIV: Yes Additional medical history: Opioid Addiction - Surgical History Hx Cholecystectomy: No Hx Appendectomy: No Additional Surgical History: Ovarian cyst - Social History Smoking Status: Current Every Day Smoker - Medications Home Medications: Home Medications Medication Instructions Recorded Confirmed Last Taken Type Darunavir/Cobicistat (Nf) 1 tab PO DAILY 02/11/19 02/11/19 Unknown History [Prezcobix 800 mg-150 mg (Nf)] Emtricitabine/Tenofov Alafenam 1 tab PO QDAY 02/11/19 02/11/19 Unknown History [Descovy 200-25 mg (Nf)] SUMAtriptan succinate [SUMAtriptan 50 mg PO Q6HR PRN 02/11/19 02/11/19 Unknown History Succinate] DULoxetine [Cymbalta] 60 mg PO QDAY #60 capsule 02/16/19 Unknown Rx Gabapentin 300 mg PO TID #90 capsule 02/16/19 Unknown Rx Melatonin [Melatonin 5MG TAB] 10 mg PO QHS #30 tablet 02/16/19 Unknown Rx Mirtazapine [Remeron 15mg TAB] 15 mg PO QHS #30 tablet 02/16/19 Unknown Rx oxyCODONE /ACETAMINOPHEN [Percocet 1 tab PO Q6H PRN #30 tablet 02/16/19 Unknown Rx 5/325 mg] traZODone [Desyrel] 50 mg PO QHS #30 02/16/19 Unknown Rx ED Physical Exam - General Limitations: No Limitations General appearance: alert, in no apparent distress - Head Head exam: Present: atraumatic, normocephalic - Eye Eye exam: Present: normal appearance - ENT ENT exam: Present: mucous membranes moist - Respiratory Respiratory exam: Present: normal lung sounds bilaterally. Absent: respiratory distress, wheezes, rales, rhonchi, stridor, chest wall tenderness, accessory muscle use, decreased breath sounds, prolonged expiratory - Cardiovascular Cardiovascular Exam: Present: regular rate, normal rhythm, normal heart sounds. Absent: systolic murmur, diastolic murmur, rubs, gallop - Extremities Exam Extremities exam: Absent: pedal edema - Neurological Exam Neurological exam: Present: alert, oriented X3 - Psychiatric Psychiatric exam: Present: normal affect, normal mood - Skin Skin exam: Present: warm, dry, intact ED Course Vital Signs 03/25/19 03/25/19 15:19 16:41 Temperature 98.2 F Pulse Rate 85 Respiratory 19 18 Rate Blood Pressure 139/86 O2 Sat by Pulse 99 Oximetry ED Medical Decision Making - Lab Data Result diagrams: 03/25/19 16:02 03/25/19 16:02 Lab Results 03/25/19 03/25/19 03/25/19 Range/Units 16:02 16:02 16:02 WBC 6.0 (4.5-11.0) K/mm3 RBC 4.52 (3.65-5.03) M/mm3 Hgb 14.0 (10.1-14.3) gm/dl Hct 41.3 (30.3-42.9) % MCV 91 (79-97) fl MCH 31 (28-32) pg MCHC 34 (30-34) % RDW 14.6 (13.2-15.2) % Plt Count 164 (140-440) K/mm3 Lymph % (Auto) 49.0 H (13.4-35.0) % [place] % (Auto) 5.9 (0.0-7.3) % Eos % (Auto) 1.7 (0.0-4.3) % Baso % (Auto) 0.4 (0.0-1.8) % Lymph # 2.9 (1.2-5.4) K/mm3 [place] # 0.4 (0.0-0.8) K/mm3 Eos # 0.1 (0.0-0.4) K/mm3 Baso # 0.0 (0.0-0.1) K/mm3 Seg Neutrophils % 43.0 (40.0-70.0) % Seg Neutrophils # 2.6 (1.8-7.7) K/mm3 PT 12.7 (12.2-14.9) Sec. INR 0.94 (0.87-1.13) APTT 29.2 (24.2-36.6) Sec. Sodium 140 (137-145) mmol/L Potassium 4.1 (3.6-5.0) mmol/L Chloride 100.7 (98-107) mmol/L Carbon Dioxide 27 (22-30) mmol/L Anion Gap 16 mmol/L BUN 11 (7-17) mg/dL Creatinine 0.6 L (0.7-1.2) mg/dL Estimated GFR > 60 ml/min BUN/Creatinine Ratio 18 % Glucose 82 (65-100) mg/dL Calcium 9.2 (8.4-10.2) mg/dL Total Bilirubin 0.30 (0.1-1.2) mg/dL AST 50 H (5-40) units/L ALT 42 (7-56) units/L Alkaline Phosphatase 108 (35-129) units/L Troponin T (0.00-0.029) ng/mL Total Protein 7.2 (6.3-8.2) g/dL Albumin 4.1 (3.9-5) g/dL Albumin/Globulin Ratio 1.3 % 03/25/19 03/25/19 Range/Units 16:02 17:54 WBC (4.5-11.0) K/mm3 RBC (3.65-5.03) M/mm3 Hgb (10.1-14.3) gm/dl Hct (30.3-42.9) % MCV (79-97) fl MCH (28-32) pg MCHC (30-34) % RDW (13.2-15.2) % Plt Count (140-440) K/mm3 Lymph % (Auto) (13.4-35.0) % [place] % (Auto) (0.0-7.3) % Eos % (Auto) (0.0-4.3) % Baso % (Auto) (0.0-1.8) % Lymph # (1.2-5.4) K/mm3 [place] # (0.0-0.8) K/mm3 Eos # (0.0-0.4) K/mm3 Baso # (0.0-0.1) K/mm3 Seg Neutrophils % (40.0-70.0) % Seg Neutrophils # (1.8-7.7) K/mm3 PT (12.2-14.9) Sec. INR (0.87-1.13) APTT (24.2-36.6) Sec. Sodium (137-145) mmol/L Potassium (3.6-5.0) mmol/L Chloride (98-107) mmol/L Carbon Dioxide (22-30) mmol/L Anion Gap mmol/L BUN (7-17) mg/dL Creatinine (0.7-1.2) mg/dL Estimated GFR ml/min BUN/Creatinine Ratio % Glucose (65-100) mg/dL Calcium (8.4-10.2) mg/dL Total Bilirubin (0.1-1.2) mg/dL AST (5-40) units/L ALT (7-56) units/L Alkaline Phosphatase (35-129) units/L Troponin T < 0.010 < 0.010 (0.00-0.029) ng/mL Total Protein (6.3-8.2) g/dL Albumin (3.9-5) g/dL Albumin/Globulin Ratio % - EKG Data EKG shows normal: sinus rhythm, axis, intervals, QRS complexes, ST-T waves Rate: normal - Radiology Data Radiology results: report reviewed CHEST 2 VIEWS INDICATION: Chest Pain. COMPARISON: None. FINDINGS: Support devices: None. Heart: Within normal limits. Pulmonary vasculature: Normal. Lungs/pleura: No acute air space or interstitial disease. No pneumothorax. Additional findings: None. IMPRESSION: 1. No acute findings. Signer Name: Negra Gupta MD Signed: 03/25/2019 3:54 PM Workstation Name: [id number] Transcribed By: REF Dictated By: NEGRA GUPTA MD Electronically Authenticated By: NEGRA GUPTA MD Signed Date/Time: 03/25/19 1554 DD/ 155 TD/TT: - Medical Decision Making Patient is a 58-year-old female presents with chest pain that began today. She states it feels like a stabbing sensation and a burning sensation. She states she has mild shortness of breath. She states she has had increased anxiety and believes that her symptoms are related to her anxiety. She states that she takes Ativan but has not had a week and a half. She states that she has an appointment with the behavior [facility] on (04/01/2019). She denies any nausea, vomiting, diarrhea, fever, leg swelling, recent travel, recent surgery, hormone use. She has a past medical history of HIV and states that she is on antivirals and reports she is undetectable. She denies any allergies medications. She denies any cardiac history. She denies any family history of [place]. Vitals are normal. No abnormality on physical examination as documented in chart. EKG is within normal limits. Labs are stable. Troponin is negative 2. Heart score is 1 and MEGGAN score is 0 very low risk for cardiac event. PERC criteria negative for PE. does not appear to be in acute withdrawal at this time. Patient given GI cocktail and hydroxyzine. Advised patient that we do not refill Ativan out of the emergency department and that this needs to be managed by a primary care physician or psychiatrist. The most important treatment for anxiety is therapy and meditation and to develop coping mechanisms. Ativan can be very addicting. Please follow-up with a psychiatrist, primary care doctor, poultry cutter. return to the emergency room for any new or worsening symptoms. Please return to the emergency room immediately if began feeling thoughts of wanting to hurt herself or others. - Differential Diagnosis ACS, anxiety, PE, PTX, GERD, PUD, gas pain, anemia, CM, CHF, PNA, COPD Critical care attestation.: If time is entered above; I have spent that time in minutes in the direct care of this critically ill patient, excluding procedure time. ED Disposition Clinical Impression: Anxiety Chest pain Qualifiers: Chest pain type: unspecified Qualified Code(s): R07.9 - Chest pain, unspecified Disposition: DC-01 TO HOME OR SELFCARE Is pt being admited?: No Does the pt Need Aspirin: No Condition: Stable Instructions: Chest Pain (ED), Anxiety (ED) Additional Instructions: we do not refill Ativan out of the emergency department and that this needs to be managed by a primary care physician or psychiatrist. The most important treatment for anxiety is therapy and meditation and to develop coping mechanisms. Ativan can be very addicting. Please follow-up with a psychiatrist, primary care doctor, poultry cutter. return to the emergency room for any new or worsening symptoms. Please return to the emergency room immediately if began feeling thoughts of wanting to hurt herself or others. Referrals: JOANNA GRANADO MD [Staff Physician] - 2-3 Days MINDY LIRA MD [Staff Physician] - 2-3 Days [facility] [Outside] - 2-3 Days Time of Disposition: 19:28 Print Language: MACEDONIAN
[2019-03-25] MEDS ORDERED: hydrOXYzine HCL 25 MG TAB PO ONE ×2 (19:49→20:20)
[2019-03-25 19:59] VITALS: BP 131/80
== END 2019-03-25 19:59 | disposition home or self-care (01) ==
LOC: ED 15:10
DX: F41.9 Anxiety disorder, unspecified (principal); I10 Essential (primary) hypertension; F17.200 Nicotine dependence, unspecified, uncomplicated; Z79.899 Other long term (current) drug therapy
CPT/HCPCS: 36415; 71046; 80053; 84484; 85025; 85610; 85730; 93005; 93010